=== PATIENT | female | born 1950 | race Caucasian/White ===

== ENCOUNTER 2017-03-12 15:35 | Inpatient (IN) | payer MEDICARE, OTHER ==
[~2017-03-12] VITALS: Ht 157.5 cm; Wt 59.6 kg
[2017-03-12 18:10] VITALS: BP 147/73
[2017-03-12 19:03] LABS: MEAN CORPUSCULAR HEMOGLOBIN 37.7 pg (27.0-33.0); RED CELL DISTRIBUTION WIDTH 13.8 % (11.5-14.5); WHITE BLOOD COUNT 11.4 K/mm3 (4.0-10.0)
[2017-03-12 19:21] LABS: ALBUMIN 3.1 GM/DL (3.2-5.2); ALBUMIN/GLOBULIN RATIO 1.15 (1.00-1.93); ALKALINE PHOSPHATASE 77 U/L (45-117); ALT/SGPT 29 U/L (12-78); ANION GAP 7 MEQ/L (8-16); AST/SGOT 42 U/L (15-37); BLOOD UREA NITROGEN 7 MG/DL (7-18); CALCIUM LEVEL 8.2 MG/DL (8.8-10.2); CARBON DIOXIDE LEVEL 31 MEQ/L (21-32); CHLORIDE LEVEL 88 MEQ/L (98-107); CREATININE FOR GFR 0.36 MG/DL (0.55-1.02); GLOMERULAR FILTRATION RATE > 60.0 (>45); GLUCOSE, FASTING 121 MG/DL (80-110); MAGNESIUM LEVEL 2.4 MG/DL (1.8-2.4); PHOSPHORUS LEVEL 3.1 MG/DL (2.5-4.9); POTASSIUM SERUM 3.7 MEQ/L (3.5-5.1); SODIUM LEVEL 126 MEQ/L (136-145); TOTAL PROTEIN 5.8 GM/DL (6.4-8.2)
[2017-03-12] MEDS ORDERED: ASPI1TAB PO (19:24)
[2017-03-12] MEDS ORDERED: OLME1TAB9 PO (19:24)
[2017-03-12] MEDS ORDERED: TYLE325T5 PO (19:24)
[2017-03-12] MEDS ORDERED: CARV12.5 PO (19:24)
[2017-03-12] MEDS ORDERED: AMLO5TAB2 PO (19:24)
[2017-03-12] MEDS ORDERED: ALBU83IN INH (19:24)
[2017-03-12] MEDS ORDERED: IPRASOL4 INH (19:24)
[2017-03-12] MEDS ORDERED: VITA100066 PO (19:30)
[2017-03-12] MEDS ORDERED: HYDR10VL IV (19:30)
[2017-03-12] MEDS ORDERED: FAMO1TAB11 PO (19:30)
[2017-03-12] MEDS ORDERED: LOVE1INJ SC (19:30)
[2017-03-12] MEDS ORDERED: LORA-376 PO (19:30)
[2017-03-12] MEDS ORDERED: FOLI400T PO (19:30)
[2017-03-12] MEDS ORDERED: LOSA50TA20 PO (19:31)
[2017-03-12] MEDS ORDERED: VITMTA PO (19:35)
[2017-03-12] MEDS ORDERED: NICO7DIS2 TD (19:35)
[2017-03-12] MEDS ORDERED: POTA10PO PO (19:35)
[2017-03-12] MEDS ORDERED: VANC1VLAD IV (19:39)
[2017-03-12] MEDS ORDERED: VITA100T2 PO (19:39)
[2017-03-12] MEDS ORDERED: FURO10IN17 IV (19:39)
[2017-03-12] MEDS ORDERED: SPIR1CAP INH (19:39)
[2017-03-12] MEDS ORDERED: FURO40TA2 PO (19:39)
[2017-03-12] MEDS ORDERED: SPIR25TA2 PO (19:39)
[2017-03-12] MEDS ORDERED: SIMV10TA2 PO (19:44)
[2017-03-12 20:00] VITALS: BP 153/87
--- NOTE | 2017-03-12 20:18 | HPEPDOC ---
Medical History and Physical Date of Admission March 12, 2017 at 18:00 History and Physical PRIMARY CARE PROVIDER: ATTENDING: Quyen Cardenas MD CHIEF COMPLAINT: Transferred from [facility] for low sodium HISTORY OF PRESENT ILLNESS: This is a 66-year-old female past medical history of of COPD, significant tobacco abuse 1 pack per day 55 years, alcohol abuse, CHF was admitted to [facility] on 02/21 and discharged 02/22 with azithromycin and cefpodoxime for CAP/UTI. Patient had presented back to [facility] on 02/28 complaining of confusion and ataxia during which the patient was noted to have a sodium of 107, potassium 2.8 , chloride 71, lactic acid 0.9. Patient had been complaining of diarrhea and vomiting for 3 days prior to presentation on the . Patient was noted to have C. difficile and was treated with Flagyl completed 1 week treatment. Patient was then treated with Zosyn for pneumonia after which vancomycin was added for persistent leukocytosis while the patient was on steroids. Patient had been afebrile. In regards to the hyponatremia as per Dr. Moore from [facility], the patient had been given 3 presents sodium on presentation with mild improvement. Patient was thought to be volume overloaded and was given diuretics as well as lab Samsca 30mg, which closed the sodium to rise from 124-147 on 03/07. The patient had then been given fluids as well as salt tablets as the sodium started to trend down to 124-> 118. Dr. Moore states that he also gave an additional 15 mg of Samsca prior to sending the patient's to [facility]. Dr. Moore was concerned for the persistent hyponatremia for sedation has been transferred here. Of note there has been a significant rise in the patient's sodium since the patient's admission to [facility] on 02/28 the patient had an initial rise of sodium from 107-122 in less than 24 hours from initial presentation. Patient then had an acute rise of sodium from 124-147 after 30 mg of Samsca was given . The patient certainly has a increased risk of developing central pontine myelolysis, during which initial symptoms do not develop immediately after the rapid rise of sodium. The patient will need to be monitored for this. PAST MEDICAL HISTORY: As per HPI PAST SURGICAL HISTORY: Carpal tunnel surgery bilaterally, rotator cuff surgery bilaterally, tonsillectomy, tubal ligation SOCIAL HISTORY: Smokes 1 pack per day 55 years, drinks daily (7 vodkas). No illicit drug use. FAMILY HISTORY: Noncontributory ALLERGIES: Please see below. REVIEW OF SYSTEMS: HEENT: Denies sore throat/headache CARDIOVASCULAR: Denies chest pain/palpitations RESPIRATORY: No shortness of breath/cough GASTROINTESTINAL: denies nausea/vomiting GENITOURINARY: Denies dysuria/urinary urgency. MUSCULOSKELETAL: Denies myalgias/arthralgias NEUROLOGICAL: Denies any focal weakness Rest of ROS negative. HOME MEDICATIONS: Please see below. PHYSICAL EXAMINATION: Vitals: (see below) General: No acute distress, laying comfortably in bed. HEENT: Moist mucous membranes. Thrush Neck: No JVD or lymphadenopathy Cardiac: Regular rhythm. Tachycardic. No murmurs Pulm: Minimal coarse crackles b/l bases. No wheezing or rhonchi Abd: NT/ND + BS Ext: No edema or cyanosis Moving all ext, following commands. AAOx3. LABORATORY DATA: See below. IMAGING: CT of the chest at [facility] with diffuse mediastinal lymphadenopathy. MICROBIOLOGY: Please see below. ASSESSMENT/PLAN: 1. Hyponatremia - Likely multifactorial. Beer proteinemia, volume depletion on presentation with diarrhea, ? SIADH ?CHF. Mixed picture given multiple therapies at [facility]. Serum Na now 126.Will check Urine Na, Cr, urine osm, serum Osm, UA, TSH, cortisol level. Given patient's rapid rise in sodium at [facility], patient certainly has an increased risk of central pontine myelinolysis, and I have explained this to the patient. Appreciate Dr. Varma' s input. 2. CHF- unknown EF. Compensated at this time. Echocardiogram. Diuretics on hold for tonight, consider restarting tomorrow once urine lytes/osm is back. 3. Hypertension- controlled. Continue current meds. 4. COPD- compensated. Continue nebulizers. Taper steroids 5. Leukocytosis- likely secondary to steroids. Afebrile. Hold antibiotics for now. 6. Recent treatment of community acquired pneumonia/UTI/C. difficile 7. Lymphadenopathy/?left pleural effusion- CT of the chest with contrast ordered. Consider pulmonology consultation after CT. Concerning for malignancy. 8. Tobacco abuse- cessation counseling 9. Alcohol abuse- cessation counseling. Patient states she wants to avoid drinking alcohol again. Physical therapy. DVT prophylaxis- enoxaparin Vital Signs Vital Signs Date Time Temp Pulse Resp B/P (MAP) Pulse Ox O2 Delivery O2 Flow Rate FiO2 03/12/17 18:10 97.4 103 22 147/73 (97) 96 Nasal Cannula 3.0 Laboratory Data Labs 24H Laboratory Tests 2 03/12/17 18:40: Anion Gap 7L, Glomerular Filtration Rate > 60.0, Blood Urea Nitrogen 7, Creatinine 0.36L, Sodium Level 126L, Potassium Level 3.7, Chloride Level 88L, Carbon Dioxide Level 31, Calcium Level 8.2L, Phosphorus Level 3.1, Aspartate Amino Transf (AST/SGOT) 42H, Alanine Aminotransferase (ALT/SGPT) 29, Alkaline Phosphatase 77, Total Bilirubin 1.0, Total Protein 5.8L, Albumin 3.1L, Magnesium Level 2.4, Albumin/Globulin Ratio 1.15 CBC/BMP Laboratory Tests 03/12/17 18:40 Red Blood Count 3.06 L, Mean Corpuscular Volume 102.0 H, Mean Corpuscular Hemoglobin 37.7 H, Mean Corpuscular Hemoglobin Concent 37.0 H, Red Cell Distribution Width 13.8, Calcium Level 8.2 L, Phosphorus Level 3.1, Aspartate Amino Transf (AST/SGOT) 42 H, Alanine Aminotransferase (ALT/SGPT) 29, Alkaline Phosphatase 77, Total Bilirubin 1.0, Total Protein 5.8 L, Albumin 3.1 L Home Medications Scheduled Albuterol/Ipratropium (Ipratropium Pinole/Albut 0.5-2.5 (3) mg/3Ml) 1 Luli Luli, 3 ML NEB Q4H Amlodipine Besylate (Amlodipine Besylate) 5 Mg Tab, 5 MG PO DAILY Aspirin (Aspirin EC) 81 Mg Tabec, 81 MG PO DAILY Budesonide (Budesonide) 3 Mg Cap, 9 MG PO QAM Carvedilol (Carvedilol) 12.5 Mg Tab, 12.5 MG PO BID Famotidine (Pepcid) 20 Mg Tab, 20 MG PO BID Folic Acid (Folic Acid) 1 Mg Tab, 1 MG PO DAILY Multivitamins *[facility] STOCKED* (Thera M Plus *[facility] STOCKED*) 1 Tab Tab, 1 TAB PO DAILY Nicotine (Nicotine Transdermal Syst) 7 Mg/24 Hr Dis, 1 PATCH TD DAILY Potassium Chloride (Klor-Con M10) 10 Meq Tabcr, 40 MEQ PO DAILY Simvastatin (Simvastatin) 10 Mg Tab, 10 MG PO QHS Sodium Chloride (Sodium Chloride) 1 Gm Tab, 1 GM PO TID Sodium Chloride (Sodium Chloride) 1 Gm Tab, 1 GM PO TID Thiamine Hcl (Thiamine Hcl) 100 Mg Tab, 100 MG PO DAILY Tiotropium Pinole Monohydrate (Spiriva Handihaler) 5 Inhalation/Inhaler Powd, 1 INHALATION INH DAILY Vitamin D (Vitamin D3) 1,000 Units Tab, 1,000 UNITS PO DAILY [entocort ec] , 9 MG PO DAILY Scheduled PRN (Tylenol) 325 Mg Cap, 650 MG PO Q6HP PRN for PAIN / FEVER Alprazolam (Xanax) 0.5 Mg Tab, 0.25 MG PO Q4HP PRN for ANXIETY Allergies Coded Allergies: No Known Allergies (Unverified , 03/12/17) QUYEN CARDENAS MD March 12, 2017 20:18
[2017-03-12] MEDS ORDERED: ACETAMINOPHEN TAB 650MG DOSE (2X325MG) PO PRN (20:30)
[2017-03-12] MEDS: FAMOTIDINE 20 MG TAB PO SCH (20:41)
[2017-03-12] MEDS: SIMVASTATIN 10 MG TAB PO SCH (20:41)
[2017-03-12] MEDS: LORazepam 0.5 MG TAB PO SCH (20:41)
[2017-03-12] MEDS: NYSTATIN 500,000 U/5 ML SUSP UDC SS SCH ×2 (20:41→23:59)
[2017-03-12] MEDS: CARVedilol 12.5 MG TAB PO SCH (20:42)
[2017-03-12] MEDS ORDERED: ALBUTEROL SULFATE 2.5 MG/0.5 ML INH NEB SOLN INH PRN (20:45)
[2017-03-12] MEDS: IPRATROPIUM 0.5MG/ALBUTEROL 2.5MG INH SOL UD 3ML (DUONEB)(J7620) NEB SCH (23:47)
[2017-03-12 23:59] VITALS: BP 129/81
[2017-03-13 00:17] LABS: ANION GAP 7 MEQ/L (8-16); BLOOD UREA NITROGEN 9 MG/DL (7-18); CALCIUM LEVEL 7.9 MG/DL (8.8-10.2); CARBON DIOXIDE LEVEL 31 MEQ/L (21-32); CHLORIDE LEVEL 89 MEQ/L (98-107); CREATININE FOR GFR 0.42 MG/DL (0.55-1.02); GLOMERULAR FILTRATION RATE > 60.0 (>45); GLUCOSE, FASTING 123 MG/DL (80-110); POTASSIUM SERUM 3.8 MEQ/L (3.5-5.1); SODIUM LEVEL 127 MEQ/L (136-145)
--- NOTE | 2017-03-13 00:18 | CR ---
DATE OF CONSULTATION: 03/12/2017 REQUESTING PHYSICIAN: Dr. Lukas Cardenas CONSULTING PHYSICIAN: Dr. Varma REASON FOR CONSULTATION: Management of hyponatremia. CHIEF COMPLAINT: Patient was transferred from [facility] for management of hyponatremia. HISTORY OF PRESENT ILLNESS: Liz Jones is a 66-year-old female with past medical history of chronic obstructive pulmonary disease (COPD), alcohol abuse, and congestive heart failure (CHF) who was transferred from [facility] today for further management of hyponatremia. As per transfer documentation, she was admitted at the hospital on February 21 and was discharged on February 22 with a diagnosis of pneumonia, and she was given azithromycin and cefpodoxime. After taking antibiotics, patient started having diarrhea, pain in abdomen, confusion, and ataxia. She presented back to the hospital on February 28, and she was found to have a sodium of 107, potassium of 2.8. She was subsequently diagnosed with Clostridium (C) difficile colitis. She was started on Flagyl. She started responding well to Flagyl. During admission she was given Zosyn for the pneumonia. For the hyponatremia, she was initially thought to be volume overloaded. She was given salt tablets and Lasix. Later on, on recommendations of cardiology, she was given a dose of Samsca 30 mg, which suddenly increased her sodium from 124 to 147 on March 07. After that, she was given intravenous (IV) fluids, and her sodium trended down to 124. Since her frequent fluctuations of sodium during this recent admission, the primary team was not comfortable managing this patient at that hospital, so patient was discussed with the hospitalist team and with the nephrology service at [facility], and patient was transferred to our hospital for further management. When patient arrived today in the hospital, she is awake, alert, oriented times three. She is asymptomatic at this time. Her sodium is 126 today. Before transfer from [facility], she was also given another dose of Samsca 15 mg. Nephrology is seeing the patient for further management of hyponatremia. PAST MEDICAL HISTORY: 1. Patient has a past medical history of pneumonia and upper respiratory infection, which was recently treated. 2. Recent history of C. difficile. 3. Chronic obstructive pulmonary disease (COPD. 4. Heavy alcohol abuse. 5. Congestive heart failure. PAST SURGICAL HISTORY: 1. Patient has bilateral carpal tunnel surgeries. 2. Bilateral rotator cuff surgery. 3. Status post tonsillectomy. 4. Status post tubal ligation. ALLERGIES: No known drug allergies. FAMILY HISTORY: No significant family history of end-stage renal disease requiring hemodialysis. SMOKING HISTORY: Patient is an active smoker. Smokes about one pack per day, but she reports for the last one week she has not smoked. Patient is a heavy drinker as well. She drinks about seven vodkas every day. She denies any illicit drug abuse. REVIEW OF SYSTEMS: CONSTITUTIONAL: Patient denies any fever, chills, rigors, or weakness. EYES: Patient denies any double vision or blurry vision. ENT: She denies any ear discharge, dysphagia, odynophagia. CARDIOVASCULAR: She denies any chest pain, palpitations. RESPIRATORY: Patient is always short of breath because of her COPD. GASTROINTESTINAL: She denies any pain in abdomen, constipation. She reports recent history of C. difficile and diarrhea. GENITOURINARY: She denies any dysuria or hematuria. SKIN: She denies any rashes or ulcer. MUSCULOSKELETAL: She denies any muscle aches and pains. CENTRAL NERVOUS SYSTEM: She denies any recent weakness of any part of the body. Denies any seizure. Denies history of strokes. PSYCHIATRIC: Denies history of depression or anxiety. HEMATOLOGIC/ONCOLOGIC: She denies history of any malignancy. All other review of systems was found to be negative. PHYSICAL EXAMINATION: GENERAL: Patient is awake, alert, oriented times three, sitting in the bed in mild respiratory distress. VITAL SIGNS: Temperature is 97.3 degrees Fahrenheit, blood pressure is 153/87, pulse is 103, respiratory rate of 18, saturating 92% on nasal cannula at 3 liters. Intake and output: Urine output reported so far is 300 mL. HEAD AND NECK: Extraocular muscles intact. Pupils equally round and reactive to light. Mucous membranes are moist. Neck is supple. There is no jugular venous distention (JVD). CARDIOVASCULAR: S1, S2, tachycardia. No murmur, rub, or gallop. RESPIRATORY: Decreased breath sounds at the bases. Mild expiratory rhonchi at the bases, especially on the left side. ABDOMEN: Abdomen is soft. Positive bowel sounds. Nontender. No ascites. No organomegaly. EXTREMITIES: No clubbing or cyanosis. Pulses are 2+. There is trace edema of the bilateral lower extremities. CENTRAL NERVOUS SYSTEM: No focal neurological deficit. Power is 5/5 in all extremities. SKIN: No rashes or ulcers. PSYCHIATRIC: Normal mood and affect. LABORATORY REVIEW: CBC showed a WBC 11.4, hemoglobin is 11.5, platelets of 190. BMP showed sodium 126, potassium 3.7, chloride 88, bicarbonate is 31, BUN is 7, creatinine is 0.36. Osmolality is 258. Calcium is 8.2, phosphorus is 3.1. Albumin is 3.1. TSH is 1.5. IMAGING: A chest x-ray was done today. Official report is pending. As read by me , patient has pulmonary congestion, possible nodules in the left upper lobe, and questionable cavitary lesion. She does have cardiomegaly as well. CURRENT MEDICATIONS: - Patient is on Tylenol as needed - amlodipine 5 mg daily - aspirin 81 mg daily - Coreg 12.5 mg twice a day - Lovenox 40 mg subcutaneous daily - Pepcid 20 mg by mouth twice a day - hydrocortisone 25 mg intravenous (IV) daily - Ativan 0.5 mg by mouth at bedtime - losartan 50 mg by mouth daily - multivitamin - nicotine patch - nystatin 5 mL every 6 hours - simvastatin 10 mg at bedtime - thiamine 100 mg by mouth daily - tiotropium inhalation daily - vitamin D 1000 units by mouth daily ASSESSMENT: A 66-year-old female with recent urinary tract infection, recent Clostridium (C) difficile diarrhea, transferred from [facility] because of recent severe hyponatremia and fluctuating sodium levels. PLAN: 1. Hyponatremia. Patient's lowest sodium recent was 107. On transfer, patient's sodium level was 126. She was given a dose of Samsca today before being transferred to our hospital. I would not give any further medications at this time and continue to basic metabolic panel (BMP) every 6 hours. Continue daily weighs and 24-hour intake and input. serum thyroid-stimulating hormone (TSH) is normal. Cortisol level is pending. Serum osmolality is low. Urinalysis: Urine osmolality and urine sodium levels are pending. I have stopped the losartan. In patient's current medications, I do not see any of the medication that can cause hyponatremia. 2. Recent upper respiratory tract infection and pulmonary nodules on recent imaging. Patient has recently been treated with IV antibiotics. There is a slight leukocytosis. Continue the nebulizations at this time. Outside hospital imaging will be submitted for comparison. Chest x-ray is done. Official report is pending. Rest of the management is as per primary team. Consider getting pulmonary on board as well. 3. Hypertension. Continue current dose of Coreg and amlodipine. I have stopped losartan. Rarely angiotensin-converting enzyme (JENNIFER) inhibitors and angiotensin receptor blockers (ARBs) can cause hyponatremia as well. 4. History of alcohol abuse. I have ordered the liver ultrasound. Continue alcohol withdrawal precautions. Continue thiamine 100 mg by mouth daily. Start folic acid 1 mg by mouth daily as well. 5. History of congestive heart failure. Diuretics are on hold. Continue Coreg. Angiotension-receptor blockers are on hold. No need of diuretics at this time. Thank you for involving us in this patient. We shall be happy to follow the patient along with you tomorrow morning. Plan of care was discussed with the on-call hospitalist, Dr. Lukas Cardenas. ERWIN
[2017-03-13] MEDS: IPRATROPIUM 0.5MG/ALBUTEROL 2.5MG INH SOL UD 3ML (DUONEB)(J7620) NEB SCH ×6 (03:25→23:43)
[2017-03-13 04:00] VITALS: BP 156/71
[2017-03-13] MEDS: NYSTATIN 500,000 U/5 ML SUSP UDC SS SCH ×4 (05:12→23:54)
[2017-03-13 05:56] LABS: MEAN CORPUSCULAR HEMOGLOBIN 36.6 pg (27.0-33.0); MEAN CORPUSCULAR HGB CONC 36.1 g/dl (32.0-36.5); MEAN CORPUSCULAR VOLUME 101.5 fl (80.0-96.0); RED CELL DISTRIBUTION WIDTH 14.1 % (11.5-14.5); WHITE BLOOD COUNT 9.3 K/mm3 (4.0-10.0)
[2017-03-13 06:25] LABS: ALBUMIN 2.5 GM/DL (3.2-5.2); ALBUMIN/GLOBULIN RATIO 0.93 (1.00-1.93); ALKALINE PHOSPHATASE 68 U/L (45-117); ALT/SGPT 25 U/L (12-78); ANION GAP 10 MEQ/L (8-16); AST/SGOT 37 U/L (15-37); BILIRUBIN,TOTAL 0.7 MG/DL (0.2-1.0); BLOOD UREA NITROGEN 9 MG/DL (7-18); CALCIUM LEVEL 7.1 MG/DL (8.8-10.2); CARBON DIOXIDE LEVEL 25 MEQ/L (21-32); CHLORIDE LEVEL 89 MEQ/L (98-107); CREATININE FOR GFR 0.33 MG/DL (0.55-1.02); GLOMERULAR FILTRATION RATE > 60.0 (>45); GLUCOSE, FASTING 107 MG/DL (80-110); MAGNESIUM LEVEL 1.8 MG/DL (1.8-2.4); POTASSIUM SERUM 3.4 MEQ/L (3.5-5.1); SODIUM LEVEL 124 MEQ/L (136-145); TOTAL PROTEIN 5.2 GM/DL (6.4-8.2)
[2017-03-13 07:30] VITALS: BP 124/74
[2017-03-13] MEDS: TIOTROPIUM INHALER/CAPSULE (SPIRIVA) INH SCH (07:47)
[2017-03-13] MEDS ORDERED: LOSARTAN 50 MG TAB PO SCH (09:00)
[2017-03-13] MEDS: THIAMINE 100 MG TAB PO SCH ×3 (09:00→10:56)
[2017-03-13] MEDS ORDERED: HYDROCORTISONE 100 MG/2 ML VIAL (J1720) IV SCH (09:00)
[2017-03-13] MEDS ORDERED: ENOXAPARIN 40 MG/0.4 ML SYRINGE (J1650) SC SCH (09:00)
[2017-03-13] MEDS: MULTIVITAMINS/MINERALS THERAP 1 TAB PO SCH ×3 (09:00→10:55)
--- NOTE | 2017-03-13 09:08 | REP ---
PORTABLE CHEST, ONE VIEW: HISTORY: Congestion. Increased density is present in the left upper and lower lobe consistent with atelectasis or infiltrate. A diffuse increase in interstitial markings is present in the lungs. The heart is obscured by the density in the left lung. IMPRESSION: 1. Left upper and lower lobe atelectasis or infiltrate. 2. There is an increase in interstitial markings in the lungs. It cannot be determined if this is acute or chronic. This may represent chronic interstitial fibrosis or an acute process such as interstitial edema or pneumonia. Signed by Madhav Nguyễn MD 03/13/2017 09:42 A
[2017-03-13] MEDS ORDERED: ISOVUE-370 76% 100ML VIAL (Q9967) As Ordered ONE (09:27)
--- NOTE | 2017-03-13 09:56 | REP ---
RIGHT UPPER QUADRANT ULTRASOUND: Real-time sonographic evaluation of the right upper quadrant performed. The gallbladder demonstrates no evidence of intraluminal sludge or calculi, wall thickening or pericholecystic fluid. There is no intrahepatic or extrahepatic biliary dilatation, the common bile duct measuring 4 mm in diameter. Echotexture of the liver is mildly heterogeneous. There appears to be a cyst in the left lobe 7 x 5 x 6 mm. A right lobe liver cyst demonstrates internal septations and measures 1.5 x 1.1 x 1.3 cm. Two adjacent hyperechoic nodular areas in the right lobe measure 1.3 x 0.6 x 1.0 cm and 1.0 x 0.9 x 0.8 cm. These could represent hemangiomas but other solid nodules are not excluded. Pancreas is not well seen due to overlying bowel gas. The visualized portions are grossly unremarkable. Right kidney demonstrates no hydronephrosis with a length of 10.9 cm. IMPRESSION: Somewhat heterogeneous echotexture of the liver. Two cysts are seen in the liver. Two focal hyperechoic nodular areas could represent hemangiomas or other solid nodules. The study is limited due to tachypnea and inability to suspend respirations. Further evaluation of the liver may be made with CT with contrast. MRI would likely not be useful until the patient is able to control respirations. Signed by Aditya Calvillo MD 03/13/2017 04:45 P
[2017-03-13] MEDS ORDERED: POTASSIUM CHLORIDE 10 MEQ SR TABLET PO ONE ×2 (10:00→19:00)
[2017-03-13] MEDS: ASPIRIN 81 MG ENTERIC TAB PO SCH (10:03)
[2017-03-13] MEDS: CARVedilol 12.5 MG TAB PO SCH ×2 (10:03→20:38)
[2017-03-13] MEDS: FAMOTIDINE 20 MG TAB PO SCH ×2 (10:03→20:38)
[2017-03-13] MEDS: amLODIPine 5 MG TAB PO SCH (10:03)
[2017-03-13] MEDS: VITAMIN D 1,000 INTERNATIONAL UNITS TABLET PO SCH (10:03)
[2017-03-13] MEDS: FUROSEMIDE 20 MG/2 ML VIAL (J1940) IV SCH ×2 (10:39→17:02)
[2017-03-13] MEDS: NICOTINE 7 MG/24 HR TRANSDERMAL TD SCH (10:40)
--- NOTE | 2017-03-13 11:03 | IPNPDOC ---
Subjective Date Seen The patient was seen on 03/13/17. Subjective Chief Complaint/HPI The patient is a 66-year-old female admitted with a reason for visit of Malignant Hyponatremia And Low Sodium. Events since last encounter Patient was seen this morning at bedside. She reports feeling ok. She denies any chest pain/pressure, shortness of breath, nausea, vomiting, abdominal pain, diarrhea, confusion, lightheadedness, dizziness. Mentation is at baseline. Afebrile and vitals are stable. Objective Physical Examination General Exam: Positive: Alert, Cooperative, No Acute Distress Eye Exam: Positive: Conjunctiva & lids normal, EOMI, Negative: Sclera icteric ENT Exam: Positive: Atraumatic, Mucous membr. moist/pink, Pharynx Normal Neck Exam: Positive: Supple, Negative: thyromegaly Chest Exam: Positive: Diminished (slightly dimished on the left) Heart Exam: Positive: Rate Normal, Regular Rhythm, Normal S1, Normal S2, Negative: Murmurs Abdomen Exam: Positive: Normal bowel sounds, Soft, Other (large ecchymoses on left lower flank area), Negative: Tenderness Extremity Exam: Positive: Edema (trace lower extremity edema), Normal pulses, Negative: Cyanosis, Tenderness Skin Exam: Positive: Nl turgor and temperature, Negative: Rash Neuro Exam: Positive: Normal Speech, Cranial Nerves 3-12 NL Psych Exam: Positive: Mental status NL, Mood NL Assessment /Plan Problems (1) Hyponatremia Status: Acute Problem Specific Plan: Consult Specialist Problem Text: * Suspecting SIADH, could also have a component of beer potomania * Patient presented to the [facility] with sodium level of 107 * Given Samsca, sodium level was rapidly corrected while at [facility], monitor for neurological changes * Nephrology following * Placed on a 1200ml fluid restriction * TSH and cortisol within normal. Urine osmol and serum osmol low, uric acid low * Follow BMP q6h (2) Pulmonary nodules/lesions, multiple Problem Text: * Patient had numerous pulm nodules on chest CT, some of which are spiculated with massive adenopathy * Pulmonary consulted for further eval, possible biopsy * Also has a focal lesion on liver, hemangioma vs solid nodule (3) Alcohol abuse Status: Chronic Problem Text: * Likely contributed to low sodium levels * Liver ultrasound on 03/13 revealed 2 cysts in the liver, 2 focal hyperechoic nodular areas which could represent hemangioma or solid nodules * Recommending CT with contrast to further evaluate liver however patient just had CT of the chest with contrast * Continue with thiamine, folic acid and multivitamins daily * Counseled on alcohol abuse. Encouraged cessation. (4) CHF (congestive heart failure) Status: Chronic Problem Text: * Currently on IV Lasix * Echo pending * Had bilateral effusion and slight pericardial effusion seen on CT (5) Chronic respiratory failure with hypoxia Problem Text: * Currently requiring 3L of O2, was not on oxygen at home * Has chronic SOB from COPD * Found to have multiple pulmonary nodules and bilateral effusions (6) Hypokalemia Status: Acute Problem Text: * Oral potassium supplementation given * Continue to monitor electrolytes while being diuresed (7) Hypertension Status: Chronic Problem Text: * Blood pressure stable * Currently on Norvasc and Coreg (8) COPD (chronic obstructive pulmonary disease) Status: Chronic Problem Text: * Patient is currently on 3L O2, titrate to 88-92% * Monitor respiratory status * DuoNeb breathing treatments as needed, continue Spiriva (9) Irritable bowel syndrome Status: Chronic Problem Text: * Takes budesonide for chronic diarrhea Plan/VTE VTE Prophylaxis Ordered?: Yes (lovenox) VS, I&O, 24H, Fishbone Vital Signs/I&O Vital Signs Date Time Temp Pulse Resp B/P (MAP) Pulse Ox O2 Delivery O2 Flow Rate FiO2 03/13/17 10:03 122/70 03/13/17 07:30 98.1 103 22 91 Nasal Cannula 3.0 I&O- Last 24 Hours up to 6 AM 03/13/17 05:59 Intake Total 0 ml Output Total 700 ml Balance -700 ml Laboratory Data CBC/BMP Laboratory Tests 03/12/17 18:40 Red Blood Count 3.06 L, Mean Corpuscular Volume 102.0 H, Mean Corpuscular Hemoglobin 37.7 H, Mean Corpuscular Hemoglobin Concent 37.0 H, Red Cell Distribution Width 13.8, Calcium Level 8.2 L, Phosphorus Level 3.1, Aspartate Amino Transf (AST/SGOT) 42 H, Alanine Aminotransferase (ALT/SGPT) 29, Alkaline Phosphatase 77, Total Bilirubin 1.0, Total Protein 5.8 L, Albumin 3.1 L 03/12/17 23:43 Calcium Level 7.9 L 03/13/17 05:09 Red Blood Count 2.66 L, Mean Corpuscular Volume 101.5 H, Mean Corpuscular Hemoglobin 36.6 H, Mean Corpuscular Hemoglobin Concent 36.1, Red Cell Distribution Width 14.1, Calcium Level 7.1 L, Aspartate Amino Transf (AST/SGOT) 37, Alanine Aminotransferase (ALT/SGPT) 25, Alkaline Phosphatase 68, Total Bilirubin 0.7, Total Protein 5.2 L, Albumin 2.5 L ALDO ALVES DO March 13, 2017 11:03
--- NOTE | 2017-03-13 11:06 | REP ---
REASON: Pleural effusion. COMPARISON: None. CONTRAST UTILIZED: 100 mL Isovue 370. There is massive mediastinal and hilar adenopathy encasing the pulmonary arteries and brachiocephalic veins and a portion of the superior vena cava. There is a pericardial effusion which is slight. There is a small right pleural effusion and a small to moderate left pleural effusion, a portion of which might be loculated inferiorly. The imaged upper abdomen shows a single 1.3 cm size focal area of low density but having some peripheral contrast enhancement. The imaged osseous structures are within normal limits for the patient's age. Evaluation of the lung lorenzo show marked, scattered, asymmetric opacities with conglomerate patchy opacities in the inferior right middle lobe and in the left lower lobe with air bronchograms. Multiple, and in fact, innumerable pulmonary nodules are seen throughout the lung lorenzo, too numerous to count or individually assess and some seemingly spiculated. IMPRESSION: 1. Massive adenopathy as described above. 2. Markedly abnormal lung lorenzo suspicious for metastatic disease, possibly with concomitant right middle and left lower lobe pneumonia, which could potentially be of postobstructive nature or subsegmental atelectatic change from the same. This needs to be correlated clinically. 3. Bilateral pleural effusions. 4. Pericardial effusion. 5. Single focal hepatic abnormality suspicious for hepatic metastasis. It should be stated that at this time, that there is a very, very subtle area of mixed density also seen in the liver in the posterior segment, which I suppose could also potentially represent a small metastatic deposit. 6. Other findings as described above. Signed by Jay Barry DO 03/13/2017 11:10 A
[2017-03-13] MEDS: FOLIC ACID 1 MG TAB PO SCH (11:10)
[2017-03-13] MEDS ORDERED: SLF 3 ML SYR IV PRN (11:15)
[2017-03-13 11:18] LABS: ANION GAP 10 MEQ/L (8-16); BLOOD UREA NITROGEN 8 MG/DL (7-18); CARBON DIOXIDE LEVEL 29 MEQ/L (21-32); CHLORIDE LEVEL 86 MEQ/L (98-107); CREATININE FOR GFR 0.34 MG/DL (0.55-1.02); GLOMERULAR FILTRATION RATE > 60.0 (>45); GLUCOSE, FASTING 112 MG/DL (80-110); POTASSIUM SERUM 3.6 MEQ/L (3.5-5.1); SODIUM LEVEL 125 MEQ/L (136-145)
[2017-03-13 12:00] VITALS: BP 100/60
[2017-03-13 13:28] LABS: URIC ACID 2.3 MG/DL (2.6-6.0)
[2017-03-13] MEDS: SLF 3 ML SYR IV SCH ×2 (14:00→20:39)
[2017-03-13 16:30] VITALS: BP 136/68
[2017-03-13 17:19] LABS: ANION GAP 9 MEQ/L (8-16); BLOOD UREA NITROGEN 11 MG/DL (7-18); CARBON DIOXIDE LEVEL 28 MEQ/L (21-32); CHLORIDE LEVEL 89 MEQ/L (98-107); GLOMERULAR FILTRATION RATE > 60.0 (>45); GLUCOSE, FASTING 118 MG/DL (80-110); POTASSIUM SERUM 3.9 MEQ/L (3.5-5.1); SODIUM LEVEL 126 MEQ/L (136-145)
[2017-03-13] MEDS ORDERED: CALCIUM GLUCONATE 1,000 MG in D5W MINI-BAG PLUS 100 ML IV ONE (19:00)
[2017-03-13 20:01] VITALS: BP 130/70
--- NOTE | 2017-03-13 20:17 | CR ---
DATE OF PULMONARY CONSULTATION: 03/13/2017 REQUESTING PROVIDER: Dr. Camacho, Dr. Lacy. REASON FOR CONSULTATION: Abnormal chest CT. HISTORY OF PRESENT ILLNESS: Liz is a very pleasant 66-year-old smoker who presented to the outside hospital with ataxia and altered mental status; was found to have severe hyponatremia with a sodium of 107. She was rapidly corrected and despite this had no neurologic side effects. She was transferred here because of her hyponatremia. As part of her workup for her hyponatremia she was underwent imaging for which I am consulted. In speaking with the patient, she has been short of breath for approximately a month to 6 weeks. She describes the shortness of breath as worse with exertion. She states she has been so short of breath at times that she has been incontinent of urine. She states this was not because of coughing, simply because she was so dyspneic she was unable to control urination. She denies any chest pain but states she estimates a 10 pound weight loss over the past 2 months. She has had no fevers, but does have soaking night sweats that have been present for approximately 3 months. She has no bony pain. She has a dry nonproductive cough. She denies hemoptysis. She has had no pleurisy. She is orthopneic and states that she could never lay down flat, she would not be able to breathe. She denies any neck swelling, neck discomfort. No change in vision. She has had a headache that is generalized. The headache is mostly located in the frontal regions. She has had no epistaxis. She complains of excessive thirst, but has no history of diabetes or hyperglycemia. She is 55 year pack-year smoker and smoked up until the day she was admitted. She has known chronic obstructive pulmonary disease (COPD), has some shortness of breath at baseline, but states her shortness of breath is significantly worse over the past 4-6 weeks. She does not routinely use steroids at home. She is on Spiriva as an outpatient. She states she is on chronic Entocort for diarrhea and takes 3 tablets a day. She has no family history of lung cancer or lymphoma. She states she receives her primary care at [facility] from Lakeshia Sifuentes. PAST MEDICAL HISTORY: Hypertension. Hypercholesterolemia. COPD, not requiring oxygen at home. Nicotine dependence. Gastroesophageal reflux and chronic diarrhea attributed to "irritable bowel syndrome (IBS)". HOME MEDICATIONS: - acetaminophen 650 mg by mouth every 6 hours as needed - amlodipine 5 mg by mouth daily - aspirin 81 mg by mouth daily - carvedilol 12.5 mg by mouth twice a day - famotidine 20 mg by mouth twice a day - lorazepam 0.5 mg by mouth at bedtime - multivitamin - simvastatin 10 mg by mouth at bedtime - thiamine 100 mg by mouth daily - tiotropium 1 inhalation daily - cholecalciferol 1000 units by mouth daily INPATIENT MEDICATIONS: - Nystatin swish and swallow - Tylenol - Norvasc 5 mg by mouth daily - aspirin 81 mg by mouth daily - Coreg 12.5 mg by mouth twice a day - vitamin D 1000 units by mouth daily - Pepcid 20 mg by mouth twice a day - Ativan 0.5 mg by mouth at bedtime - MVI 1 tablet by mouth daily - nicotine patch, only 7 mg daily - simvastatin 10 mg by mouth at bedtime - thiamine 100 mg by mouth daily - Spiriva 1 inhalation daily - DuoNebs every 4 hours nebulized - Proventil inhaled every 2 hours as needed - Lasix 20 mg IV twice a day - folic acid 1 mg by mouth daily - budesonide 9 mg by mouth every a.m. ALLERGIES: No known drug allergies. SOCIAL HISTORY: The patient is a pack a day smoker for 55 years, has a history of alcohol abuse. Lives in [place] with her . She has a cat, no birds, but did take care of an Jackson for a long period of time. She has a daughter named Roxanne Mccallum who is identified as her healthcare proxy. FAMILY HISTORY: Her father had COPD, mouth cancer and diabetes. There is no family history of lung cancer or lymphoma. REVIEW OF SYSTEMS: General: Positive for night sweats and weight loss. No fever or shaking chills. HEENT: No change in vision. She is having a generalized headache as mentioned above. No epistaxis. No difficulty swallowing. No mouth swelling. She had some thrush. She has dentures. Hem/Onc: No easy bruising, bleeding or history of malignancy. Cardiac: No chest pain, but she does have orthopnea. No paroxysmal nocturnal dyspnea (PND). She has minimal lower extremity edema that she points out to me today. No symptoms of claudication. Pulmonary: She denies pleurisy. No history of TB or tuberculosis contacts. Otherwise as mentioned in HPI. GI: She states she is having symptoms of reflux currently. No nausea, vomiting or diarrhea. No blood in her stool. No constipation. She states she has not had a bowel movement for few days. She has not noticed any blood in her stool. : No burning or pain with urination. However, she is urinary incontinent. No hematuria. Endocrine: No history of diabetes or thyroid disease. She does complain of thirst, but denies polydipsia. No hot or cold intolerance. Neuro: No unilateral weakness, tremor or history of seizure. No significant head trauma. Psych: No anxiety, depression or suicidal ideation. Sleep: No history of obstructive sleep apnea. No excessive daytime somnolence. No history of snoring. Allergy/immunology: No history requiring immunotherapy. No history of immunodeficiencies. Denies environmental allergies. PHYSICAL EXAMINATION: Temperature is 98.0, pulse is 107, respiratory rate is 24, blood pressures 100/60. Mean arterial pressure (MAP) of 73, oxygen saturations 94% on 3 liters. Eyes and nose were not accurately measured yesterday. General: The patient is sitting upright in bed eating dinner. Her speech is clear, not tangential, no evidence of acute respiratory distress. HEENT: Sclerae clear and anicteric. Pupils are 5 mm, equal and reactive to light. Mucous membranes are moist. I do not see any thrush on exam. She does have upper and lower dentures in place. Mallampati 1, neck is supple. No tracheal deviation or mass. She has bilateral increased supraclavicular fat pads suggesting chronic steroid use. Lymph: No palpable cervical supraclavicular axillary adenopathy. Cardiac: Distant S1-S2 without audible murmur, rub or gallop. No elevated jugular venous pressure. Minimal ankle edema. Peripheral pulses are palpable at posterior tibialis bilaterally and symmetric. Pulmonary: Decreased breath sounds throughout, especially at the left base. There is dullness to percussion at the left base. There is decreased tactile fremitus at the left base. Abdomen: Potty with hypoactive bowel sounds. Minimal tenderness to palpation, without rebound or guarding. I do not palpate any mass or hepatosplenomegaly. Extremities: No cyanosis or clubbing. There is minimal bruising over her shins, left greater than right. No jaundice. Neuro: No unilateral weakness. No evidence of tremor or seizure activity. Musculoskeletal: Some muscle wasting. No evidence of joint effusion or fracture. LABS: Laboratory evaluation shows a white blood cell count of 9.3, hemoglobin 9.7, hematocrit of 27.0, platelet of 163, sodium 125, potassium 3.6, chloride of 86, bicarbonate of 29. BUN of 8, creatinine 0.34, albumin 2.5. Chest x-ray from 03/12/2017 shows a left pleural effusion with a significantly enlarged mediastinum. Some increased vascular markings and flattening of the diaphragms. Chest CT from 03/13/2017 shows that the cause of the enlarged mediastinum is significant mediastinal adenopathy. There are numerous lymph nodes throughout the mediastinum with an extremely large subcarinal node and pretracheal node, especially on the right. There are multiple pulmonary nodules, however, these are less than 1 cm. There is bilateral pleural effusions, left greater than right. There is emphysema throughout both lung lorenzo. I do not see any significant areas of pneumonia, although there is what appears to be compressive atelectasis at the left base. I cannot entirely rule out pneumonia at the left base. There is a liver lesion. Ultrasound of the liver was difficult as the patient was to tachpneic. Two cysts were seen in the liver, felt that these were two focal hyperechoic nodular areas that could represent hemangiomas or solid nodules. Recommended further evaluation with other imaging. IMPRESSION: 1. Abnormal chest CT with significant mediastinal hilar adenopathy with pulmonary nodules, bilateral pleural effusions worrisome for malignancy. I suspect this is most likely small cell cancer or lymphoma. I have recommended bronchoscopy with endobronchial ultrasound needle aspiration of the lymphadenopathy for diagnostic purposes. The patient expresses understanding. The risks and benefits were discussed with the patient at bedside. She has agreed to proceed. Alternatives to this procedure including doing nothing and mediastinoscopy was discussed. She states she would not want to pursue a mediastinoscopy. The risks of the procedure including bleeding, pneumothorax, cough, respiratory failure with general anesthesia was discussed with the patient in detail. The patient is not on any anticoagulation other than deep venous thrombosis (DVT) prophylaxis. This will be held. She will be made nothing by mouth (npo) after midnight. 2. Hyponatremia, likely related to pulmonary process. Suspect inappropriate secretion of antidiuretic hormone (SIADH). Would continue fluid restriction. The patient has no signs, symptoms of hyponatremia at this point in time. Would avoid rapid correction. 3. Bilateral pleural effusions may be related to volume overload versus malignancy. If these enlarge will perform thoracentesis. 4. Hepatic lesion. This will need to be followed to see if this is a metastatic lesion. 5. Nicotine dependence. Extensive counseling of need to quit smoking. 6. Gastroesophageal reflux disease, on reflux medications. Will continue to follow this. The patient planned for bronchoscopy tomorrow. MTDD
[2017-03-13] MEDS: SIMVASTATIN 10 MG TAB PO SCH (20:38)
[2017-03-13] MEDS: LORazepam 0.5 MG TAB PO SCH (20:39)
--- NOTE | 2017-03-13 21:50 | ECHO ---
DATE OF PROCEDURE: 03/13/2017 REFERRING PHYSICIAN: Lukas Cardenas MD INDICATION: Cardiomegaly. HEIGHT: 158 cm WEIGHT: 59 kg 2D MEASUREMENTS: Left atrium: 3.1 cm Posterior wall: 1.00 cm Left ventricle diastole: 3.3 cm LVOT: 1.9 cm Aortic root: 2.6 cm DOPPLER MEASUREMENTS: Aortic valve velocity: 123 cm/s LVOT velocity: 91.7 cm/s Mitral deceleration time: 55.3 cm/s Mitral A velocity: 84.9 cm/s Very mild tricuspid regurgitation. Pulmonary artery systolic pressure 46 mmHg by pulmonary artery acceleration time method. MITRAL ANNULAR TISSUE DOPPLER: E prime septal: 6.4 cm/s E prime lateral: 5.2 cm/s DESCRIPTION: Rhythm was sinus tachycardia. This was a moderately technically difficult echocardiogram. This is a 2D, M-mode, color flow Doppler and pulse wave Doppler examination that included mitral annular tissue Doppler. CONCLUSIONS: 1. No enlargement of any of the cardiac chambers. 2. Normal left ventricle, wall motion and left ventricle (LV) systolic functoin. Left ventricular ejection fraction (LVEF) of 70% by visual estimate. Grade 1 left ventricle (LV) diastolic dysfunction (impaired relaxation filling pattern). 3. Small pericardial effusion without diastolic chamber collapse and without significant respiratory variation of intracardiac velocities. 4. Left pleural effusion. 5. Suggestive of moderate elevation of pulmonary artery systolic pressure (46 mmHg).
[2017-03-13 23:39] LABS: ANION GAP 10 MEQ/L (8-16); BLOOD UREA NITROGEN 12 MG/DL (7-18); CALCIUM LEVEL 8.1 MG/DL (8.8-10.2); CARBON DIOXIDE LEVEL 28 MEQ/L (21-32); CHLORIDE LEVEL 94 MEQ/L (98-107); CREATININE FOR GFR 0.47 MG/DL (0.55-1.02); GLOMERULAR FILTRATION RATE > 60.0 (>45); GLUCOSE, FASTING 94 MG/DL (80-110); POTASSIUM SERUM 3.7 MEQ/L (3.5-5.1); SODIUM LEVEL 132 MEQ/L (136-145)
[2017-03-13 23:59] VITALS: BP 99/56
[2017-03-14] VITALS (9 sets, daily range): BP systolic 87–133; BP diastolic 57–70
--- NOTE | 2017-03-14 02:13 | IPN ---
DATE: 03/13/2017 SUBJECTIVE: Patient was seen and examined at the bedside today in the morning. Patient is asymptomatic at this time. Last 24-hour labs and events were noted. Patient's sodium on arrival yesterday was 126, which has dropped to 124 today morning. Patient was given a dose of Lasix this morning to dilute her urine, because her urine osmolality is 296 despite hyponatremia. Patient also got her CAT scan of the chest done yesterday, which showed passive adenopathy and possibility of malignancy in the lungs. Pulmonary evaluation is pending. REVIEW OF SYSTEMS: Patient denies any fever, chills, rigors, headache, nausea, vomiting, chest pain. She does report shortness of breath. She denies any pain in abdomen, constipation, or diarrhea. Rest of review of systems is negative. OBJECTIVE: Vital signs: Temperature is 98.1 degrees Fahrenheit, blood pressure is 124/74, pulse is 103, respiratory rate of 18, saturating 91% on nasal cannula at 3 liters per minute. Intake and output: Urine output recorded is 300 mL yesterday and 1 liter so far today. Weight in the bed scale is 60.5 kg. PHYSICAL EXAMINATION: GENERAL: Patient is awake, alert, oriented times three, sitting in the bed in no apparent distress. HEAD AND NECK: Extraocular muscles intact. Pupils equally round and reactive to light. Mucous membranes are moist. Neck is supple. There is no jugular venous distention (JVD). CARDIOVASCULAR: S1, S2, tachycardia. No murmur, rub, or gallop. RESPIRATORY: Decreased breath sounds at the bases. Mild expiratory rhonchi at the bases and some crepitations on the left side. ABDOMEN: Abdomen is soft. Positive bowel sounds. Nontender. No ascites. No organomegaly. EXTREMITIES: No clubbing or cyanosis. Pulses are 2+. She has very trace edema of the bilateral ankles. CENTRAL NERVOUS SYSTEM: No focal neurological deficit. Power is 5/5 in all extremities. LABORATORY REVIEW: CBC showed a WBC 9.3, hemoglobin is 9.7, platelets are 163. BMP this morning showed a sodium of 124, potassium 3.4, chloride 89, bicarbonate 25, BUN is 9, creatinine is 0.3, calcium is 7.1. LDH is 445. Albumin is 2.5. Morning cortisol is 18.4. TSH is 1.5. Urine random osmolality was 296. Random sodium was 35. HIV antibody is negative. IMAGING: A CAT scan of the chest was done, which showed massive adenopathy. Markedly abnormal lung lorenzo, suspicious for metastatic disease. Possibly with concomitant right middle and left lower lobe pneumonia. Bilateral pleural effusions, pericardial effusion, and single focal hepatic abnormality suspicious for hepatic metastasis. Patient got a liver ultrasound done as well, which showed heterogeneous echotexture of the liver and two focal hyperechoic nodular areas suspicious for hemangioma or solid nodules. CURRENT MEDICATIONS: Patient's current medications were all reviewed by me. She was given a dose of calcium gluconate 1 gram IV for hypocalcemia. She has been started on amlodipine 5 mg by mouth daily. Coreg 12.5 mg by mouth twice a day has been restarted. She has been started on Lasix 20 mg IV twice a day. She was given a dose of potassium chloride 40 mEq by mouth times one dose this morning. There is no other change in the medications today. ASSESSMENT: A 66-year-old female with multiple nodular lesions in the lung, hyponatremia, hypokalemia, and hypertension. PLAN: 1. Euvolemic, hypotonic hyponatremia with high urine osmolality and high urine sodium, which points toward syndrome of inappropriate secretion of antidiuretic hormone (SIADH). The etiology of SIADH is most likely lung pathology. Patient has been started on Lasix 20 mg IV twice a day. I am also going to start the patient on a salt tablet. If Lasix and salt tablet are not able to control patient's sodium levels, then patient will be started on daily Samsca. 2. Multiple pulmonary nodules and suspicious lesions on the CAT scan. Patient is getting nebulizations. Currently she is not getting any antibiotics. Pulmonary consult is pending. Patient will need a lung biopsy to rule out malignancy. 3. Hypertension. Continue Coreg and amlodipine. Hold angiotensin-converting enzyme (JENNIFER) inhibitors, which can sometimes cause hyponatremia. 4. History of congestive heart failure and pericardial effusion. Low-dose diuretics have been started, which will help with hyponatremia and also with congestive heart failure (CHF). Continue Coreg. Hold JENNIFER inhibitors. 5. Hypokalemia. Patient was given potassium chloride 40 mEq by mouth times one dose. 6. Hypocalcemia. Patient was given calcium gluconate 1 gram IV times one dose. The plan of care was discussed with the hospitalist team, Dr. Susi Camacho. Continue to monitor basic metabolic panel (BMP) every 6 hours for now.
[2017-03-14] MEDS ORDERED: diphenhydrAMINE INJ 50MG/ML VIAL (J1200) IV ONE (02:30)
[2017-03-14 03:18] LABS: MEAN CORPUSCULAR HEMOGLOBIN 36.7 pg (27.0-33.0); MEAN CORPUSCULAR HGB CONC 35.6 g/dl (32.0-36.5); MEAN CORPUSCULAR VOLUME 103.2 fl (80.0-96.0); RED CELL DISTRIBUTION WIDTH 13.8 % (11.5-14.5); WHITE BLOOD COUNT 8.5 K/mm3 (4.0-10.0)
[2017-03-14 03:38] LABS: ALBUMIN 2.6 GM/DL (3.2-5.2); ALBUMIN/GLOBULIN RATIO 0.96 (1.00-1.93); ALKALINE PHOSPHATASE 65 U/L (45-117); ALT/SGPT 24 U/L (12-78); ANION GAP 9 MEQ/L (8-16); AST/SGOT 35 U/L (15-37); BILIRUBIN,TOTAL 0.7 MG/DL (0.2-1.0); BLOOD UREA NITROGEN 12 MG/DL (7-18); CALCIUM LEVEL 7.6 MG/DL (8.8-10.2); CARBON DIOXIDE LEVEL 29 MEQ/L (21-32); CHLORIDE LEVEL 92 MEQ/L (98-107); CREATININE FOR GFR 0.45 MG/DL (0.55-1.02); GLOMERULAR FILTRATION RATE > 60.0 (>45); GLUCOSE, FASTING 103 MG/DL (80-110); MAGNESIUM LEVEL 1.7 MG/DL (1.8-2.4); POTASSIUM SERUM 3.8 MEQ/L (3.5-5.1); SODIUM LEVEL 130 MEQ/L (136-145); TOTAL PROTEIN 5.3 GM/DL (6.4-8.2)
[2017-03-14] MEDS: IPRATROPIUM 0.5MG/ALBUTEROL 2.5MG INH SOL UD 3ML (DUONEB)(J7620) NEB SCH ×5 (04:47→20:38)
[2017-03-14] MEDS: NYSTATIN 500,000 U/5 ML SUSP UDC SS SCH (05:52)
[2017-03-14] MEDS: SLF 3 ML SYR IV SCH ×3 (05:53→20:29)
[2017-03-14] MEDS: TIOTROPIUM INHALER/CAPSULE (SPIRIVA) INH SCH (07:40)
[2017-03-14] MEDS ORDERED: ROCURONIUM BROMIDE 50 MG/5 ML VIAL As Ordered ONE (08:03)
[2017-03-14] MEDS ORDERED: MIDAZOLAM INJ 2 MG/2 ML VIAL (J2250) As Ordered ONE ×2 (08:03→11:10)
[2017-03-14] MEDS ORDERED: PROPOFOL 200 MG/20 ML VIAL As Ordered ONE (08:03)
[2017-03-14] MEDS ORDERED: LIDOCAINE 2% INJ 100 MG/5 ML SDV (FOR ANES.) As Ordered ONE (08:03)
[2017-03-14] MEDS ORDERED: fentaNYL 100 MCG/2 ML INJECTION (J3010) As Ordered ONE (08:04)
[2017-03-14] MEDS: BUDESONIDE EC 3 MG CAP (ENTOCORT EC) PO SCH (09:00)
[2017-03-14] MEDS: THIAMINE 100 MG TAB PO SCH (09:00)
[2017-03-14] MEDS: MULTIVITAMINS/MINERALS THERAP 1 TAB PO SCH (09:00)
[2017-03-14] MEDS: amLODIPine 5 MG TAB PO SCH (09:00)
[2017-03-14] MEDS: CARVedilol 12.5 MG TAB PO SCH ×2 (09:00→20:29)
[2017-03-14] MEDS: FUROSEMIDE 20 MG/2 ML VIAL (J1940) IV SCH ×2 (09:00→17:00)
[2017-03-14] MEDS ORDERED: ENOXAPARIN 30 MG/0.3 ML SYR (J1650) SC SCH (09:00)
[2017-03-14] MEDS ORDERED: EPINEPHrine 1MG/10ML SYRINGE 1.5IN As Ordered ONE (09:13)
[2017-03-14] MEDS ORDERED: LIDOCAINE 1% SDV INJ 30 ML VIAL As Ordered ONE (09:35)
[2017-03-14] MEDS ORDERED: THROMBIN SOLN 5,000 UNITS VIAL As Ordered ONE (09:35)
[2017-03-14] MEDS ORDERED: GLYCOPYRROLATE INJ 0.2 MG/ML 2 ML VIAL As Ordered ONE (09:40)
[2017-03-14] MEDS ORDERED: NEOSTIGMINE 1MG/ML 5 ML SYRINGE (J2710) As Ordered ONE (09:40)
[2017-03-14] MEDS ORDERED: PHENYLephrine HCL 500 MCG/5 ML (100MCG/ML) SYRINGE (J2370) As Ordered ONE (09:41)
[2017-03-14] MEDS ORDERED: ONDANSETRON 4MG/2ML VIAL (J2405) As Ordered ONE (09:41)
[2017-03-14] MEDS ORDERED: PHENYLEPHRINE INJ 10MG/ML VIAL (J2370) As Ordered ONE (09:41)
--- NOTE | 2017-03-14 10:18 | IPNPDOC ---
Subjective Date Seen The patient was seen on 03/14/17. Subjective Chief Complaint/HPI The patient is a 66-year-old female admitted with a reason for visit of Malignant Hyponatremia And Low Sodium. Events since last encounter Patient was seen this morning at bedside. No acute overnight events. She denies any chest pain, increased shortness of breath, nausea, vomiting, diarrhea, fevers or chills. No headache, lightheadedness or dizziness. She is a little nervous about the bronchoscopy this morning but states "I do not like the unknown." Objective Physical Examination General Exam: Positive: Alert, Cooperative, No Acute Distress Eye Exam: Positive: Conjunctiva & lids normal, EOMI, Negative: Sclera icteric ENT Exam: Positive: Atraumatic, Mucous membr. moist/pink, Pharynx Normal Neck Exam: Positive: Supple, Negative: thyromegaly Chest Exam: Positive: Diminished (diminished more on the left and the bases) Heart Exam: Positive: Rate Normal, Regular Rhythm, Normal S1, Normal S2, Negative: Murmurs Abdomen Exam: Positive: Normal bowel sounds, Soft, Other (large ecchymoses on left lower flank area), Negative: Tenderness Extremity Exam: Positive: Edema (trace lower extremity edema), Normal pulses, Negative: Cyanosis, Tenderness Skin Exam: Positive: Nl turgor and temperature, Negative: Rash Neuro Exam: Positive: Normal Speech, Cranial Nerves 3-12 NL Psych Exam: Positive: Mental status NL, Mood NL Assessment /Plan Problems (1) Hyponatremia Status: Acute Problem Specific Plan: Consult Specialist Problem Text: * Suspecting SIADH * Patient presented to the [facility] with sodium level of 107 * Given Samsca, sodium level was rapidly corrected while at [facility], monitor for neurological changes * Nephrology following * Placed on a 1200ml fluid restriction * Currently on IV Lasix BID * TSH and cortisol within normal. Urine osmol and serum osmol low, uric acid low * Continue to monitor sodium levels, currently 130 (2) Pulmonary nodules/lesions, multiple Problem Text: * Patient had numerous pulm nodules on chest CT, some of which are spiculated with massive adenopathy * Pulmonary consulted for further eval * She is being taken for bronchoscopy with ultrasound-guided biopsy this morning * Also has a focal lesion on liver, hemangioma vs solid nodule (3) Alcohol abuse Status: Chronic Problem Text: * Likely contributed to low sodium levels * Liver ultrasound on 03/13 revealed 2 cysts in the liver, 2 focal hyperechoic nodular areas which could represent hemangioma or solid nodules * Continue with thiamine, folic acid and multivitamins daily * Counseled on alcohol abuse. Encouraged cessation. (4) CHF (congestive heart failure) Status: Chronic Problem Text: * Currently on IV Lasix * Echo on 03/13 revealed grade 1 diastolic dysfunction, LVEF of 70%, small pericardial effusion, moderate elevation of pulmonary artery systolic pressure * Had bilateral effusion, left greater than right and slight pericardial effusion seen on CT on 03/13 (5) Chronic respiratory failure with hypoxia Problem Text: * Currently requiring 3L of O2, was not on oxygen at home * Has chronic SOB from COPD * Found to have multiple pulmonary nodules and bilateral effusions (6) Hypokalemia Status: Acute Problem Text: * Oral potassium supplementation given * Continue to monitor electrolytes while being diuresed (7) Hypertension Status: Chronic Problem Text: * Blood pressure stable * Currently on Norvasc and Coreg (8) COPD (chronic obstructive pulmonary disease) Status: Chronic Problem Text: * Patient is currently on 3L O2, titrate to 88-92% * Monitor respiratory status * DuoNeb breathing treatments as needed, continue Spiriva (9) Irritable bowel syndrome Status: Chronic Problem Text: * Takes budesonide for chronic diarrhea (10) Cigarette smoker Problem Text: * Reports that she has smoked 2 packs a day for at least 50 years. * Continue with nicotine patch * Counseled on smoking cessation Plan/VTE VTE Prophylaxis Ordered?: Yes (teds and sequentials) VS, I&O, 24H, Fishbone Vital Signs/I&O Vital Signs Date Time Temp Pulse Resp B/P (MAP) Pulse Ox O2 Delivery O2 Flow Rate FiO2 03/14/17 08:23 Nasal Cannula 3.0 03/14/17 08:00 98.0 97 18 125/60 (81) 95 I&O- Last 24 Hours up to 6 AM 03/14/17 06:00 Intake Total 740 ml Output Total 750 ml Balance -10 ml Laboratory Data CBC/BMP Laboratory Tests 03/13/17 10:39 Calcium Level 8.0 L 03/13/17 16:45 Calcium Level 8.0 L 03/13/17 23:04 Calcium Level 8.1 L 03/14/17 03:07 Calcium Level 7.6 L, Red Blood Count 2.66 L, Mean Corpuscular Volume 103.2 H, Mean Corpuscular Hemoglobin 36.7 H, Mean Corpuscular Hemoglobin Concent 35.6, Red Cell Distribution Width 13.8, Aspartate Amino Transf (AST/SGOT) 35, Alanine Aminotransferase (ALT/SGPT) 24, Alkaline Phosphatase 65, Total Bilirubin 0.7, Total Protein 5.3 L, Albumin 2.6 L ALDO ALVES DO March 14, 2017 10:18
[2017-03-14] MEDS ORDERED: SUGAMMADEX SODIUM 500 MG/5 ML VIAL (BRIDION) As Ordered ONE (10:44)
[2017-03-14] MEDS ORDERED: LEVALBUTEROL 1.25 MG/0.5 ML CONCENTRATE NEB As Ordered ONE (11:07)
[2017-03-14 11:26] LABS: ABG BASE EXCESS 1.8 (-2.0-2.0); ABG HCO3 28.5 MEQ/L (22.0-26.0); ABG PARTIAL PRESSURE CO2 55.4 mmHg (35.0-45.0); ABG PARTIAL PRESSURE O2 54.5 mmHg (75.0-100.0); ABG STANDARD HCO3 25.9 MEQ/L (22.0-26.0); ABG TOTAL CO2 30.2 MEQ/L (23.0-31.0); ABG pH (ARTERIAL) 7.329 UNITS (7.350-7.450)
--- NOTE | 2017-03-14 11:40 | REP ---
CHEST, ONE VIEW: HISTORY: Postoperative. COMPARISON: 03/12/2017. Parenchymal densities are present in the right middle and lower lobes and left upper and lower lobes consistent with bilateral infiltrates that are increased compared to the previous study. A mild size left pleural effusion is present. The heart is obscured by the density in the lungs. The quoc are prominent. IMPRESSION: 1. Right middle and lower lobe and left upper and left lower lobe infiltrates increased compared to the previous study. 2. Mild sized left pleural effusion increased compared to the previous study. Signed by Madhav Nguyễn MD 03/14/2017 11:42 A
[2017-03-14] MEDS ORDERED: LEVALBUTEROL 1.25 MG/0.5 ML CONCENTRATE NEB INH ONE (12:00)
[2017-03-14] MEDS ORDERED: ONDANSETRON 4MG/2ML VIAL (J2405) IV PRN (12:00)
[2017-03-14] MEDS ORDERED: fentaNYL 100 MCG/2 ML INJECTION (J3010) IV PRN (12:00)
[2017-03-14] MEDS ORDERED: LR 1,000 ML IV SCH (12:00)
[2017-03-14] MEDS ORDERED: MIDAZOLAM INJ 2 MG/2 ML VIAL (J2250) IV ONE (12:00)
[2017-03-14] MEDS ORDERED: IPRATROPIUM 0.5MG/ALBUTEROL 2.5MG INH SOL UD 3ML (DUONEB)(J7620) NEB PRN (14:15)
[2017-03-14] MEDS: FAMOTIDINE 20 MG TAB PO SCH ×2 (14:47→20:29)
[2017-03-14] MEDS: ASPIRIN 81 MG ENTERIC TAB PO SCH (14:47)
[2017-03-14] MEDS: VITAMIN D 1,000 INTERNATIONAL UNITS TABLET PO SCH (14:47)
[2017-03-14] MEDS: FOLIC ACID 1 MG TAB PO SCH (14:47)
[2017-03-14] MEDS: NICOTINE 7 MG/24 HR TRANSDERMAL TD SCH (14:48)
--- NOTE | 2017-03-14 15:16 | RO ---
DATE OF PROCEDURE: 03/14/2017 PREPROCEDURE DIAGNOSIS: Mediastinal adenopathy, abnormal chest CT. POSTPROCEDURE DIAGNOSIS: Mediastinal adenopathy, abnormal chest CT. FINDINGS: Left lower lobe hemorrhage prior to biopsy. PROCEDURE: Bronchoscopy with endobronchial ultrasound. PROCEDURALIST: Dr. Genao BATCH TRUCKER: None ANESTHESIA: General. SPECIMENS: FNA subcarinal node. ESTIMATED BLOOD LOSS: 5 to 10 mL. DESCRIPTION OF PROCEDURE: Informed consent was reviewed with the patient in the preoperative area. She was brought back to operating room #8. Time-out was performed with two patient identifiers, confirming correct site and correct procedure. General anesthesia was then initiated. An 8.5 endotracheal tube was placed. The tube was deep. After intubation prior to bronchoscopy, I was called emergently for respiratory arrest. I had to leave the patient. I returned in 18 minutes. There were no complications during that extended time of anesthesia. The bronchoscope was then inserted after a second time-out was performed identifying two patient identifiers for correct site and correct procedure, making sure everyone was present in the room. The scope was inserted into the endotracheal tube with Cetacaine spray. There was a finding of a right mainstem intubation. I therefore pulled the tube back. It was then noticed that there was hemorrhage coming from the left lower lobe and lingular segment, more oozing than jasbir bleeding. I suctioned these areas. There was no significant amounts of hemorrhage. This was all prior to biopsy. On inspection of the airway, the trachea was midline. The gail was a very full and splayed. Right and left mainstem bronchus had mucus. The left mainstem bronchus had some heme, as mentioned was suctioned. RB 1 through 10 was normal without endobronchial lesion with some anatomic variant. There was no apical segment of the right upper lobe. Airways did appear somewhat externally compressed but all were patent without endobronchial lesions. The left mainstem bronchus had some heme and this was all suctioned. Left upper lobe was normal without endobronchial lesion. Lingula was normal except for some heme coming from the inferior segment. In the left lower lobe there was pools of blood, which was suctioned. I suspect the bleeding was actually from the inferior segment. After all hemostasis was assured, the bronchoscope was removed and the endobronchial ultrasound was inserted. The subcarinal node was larger than 4 cm. A picture was taken of this. Biopsies were taken and sent for cell block and some cells but in our PMI. After adequate sampling, hemostasis was assured, and the patient was extubated. The patient was sent to recovery. Postprocedure chest x-ray pending. No observed complications. MTDD
[2017-03-14] MEDS ORDERED: MAG SULF 1GM/100ML (MAG RUN) 1 GM in APPROPRIATE DILUENT 1 EA IV ONE (18:00)
--- NOTE | 2017-03-14 18:06 | ECGEPIP ---
Stationary ECG Study [facility] Test Date: 2017-03-12 Pat Name: SHANTAL DIANE Department: Room: [place] [address] Gender: F Aircraft Maintenance Engineer: STACEY : [id number] Requested By: QUYEN ESCOBEDO Order Number: [id number] Reading MD: Renny England Measurements Intervals [place] Rate: 100 P: 52 [place]: 151 QRS: 31 QRSD: 140 T: 191 QT: 381 QTc: 491 Interpretive Statements SINUS TACHYCARDIA WITH OCCASIONAL VENTRICULAR PREMATURE COMPLEXES VS ARTIFACT LEFT ATRIAL ENLARGEMENT LEFT BUNDLE BRANCH BLOCK NO PRIOR TRACING IN THE SYSTEM Electronically Signed On 03-14-2017 18:06:29 EDT by Renny England
[2017-03-14] MEDS ORDERED: methylPREDNISolone INJ 125 MG/2 ML VIAL (J2930) IV ONE (19:30)
[2017-03-14] MEDS: SIMVASTATIN 10 MG TAB PO SCH (20:29)
--- NOTE | 2017-03-14 22:46 | IPN ---
DATE: 03/14/2017 SUBJECTIVE: The patient was seen and examined today, morning. She was getting ready for her bronchoscopy. Last 24 hour events were noted. Her sodium level is fluctuating between 130-132. Her renal function is stable at this time. REVIEW OF SYSTEMS: The patient denies any fever, chills, rigors, headache, nausea, vomiting, chest pain. She does report some shortness of breath. She denies any pain in abdomen, constipation or diarrhea. The rest of the review of systems is negative. OBJECTIVE: VITAL SIGNS: Temperature is 98 degrees Fahrenheit, blood pressure is 125/60, pulse is 97, respiratory rate of 18, saturating 95% on nasal cannula at 3 liters. INTAKE/OUTPUT: Urine output recorded as 1150 mL yesterday. There is no urine output recorded today. Weight on the bed scale is 58.9 kg. PHYSICAL EXAMINATION: GENERAL: The patient is awake, alert, oriented times three, sitting in the bed in no apparent distress. HEAD AND NECK EXAM: Extraocular muscles intact. Pupils equally round and reactive to light. Mucous membranes are moist. Neck is supple. There is no jugular venous distention (JVD). CARDIOVASCULAR: S1, S2, tachycardia. No murmur, rub or gallop. RESPIRATORY: Decreased breath sounds at the bases. Mild respiratory rhonchi at the bases with some crepitations on the left side. ABDOMEN: Abdomen is soft. Positive bowel sounds. Nontender. No ascites. No organomegaly. EXTREMITIES: No clubbing or cyanosis. Pulses are 2+. Patient has trace edema of the bilateral ankles. CENTRAL NERVOUS SYSTEM: No focal neurological deficit. Power is 5/5 in all extremities. LAB REVIEW: CBC showed a WBC of 8.5, hemoglobin 9.8, platelets are 171. BMP showed sodium 130, potassium 3.8, chloride 92, bicarbonate is 29, BUN is 12, creatinine is 0.45, calcium is 7.6, magnesium is 1.7. CURRENT MEDICATIONS: Patient's medications were all reviewed by me. I have ordered a dose of magnesium sulfate 1 gram IV today. Her Lovenox is on hold. There is no other change in the medications today. ASSESSMENT: A 66-year-old female with multiple nodular lesions in the lung on recent imaging, had transferred to [facility] because of hyponatremia. PLAN: 1. Euvolemic hypotonic hyponatremia. It is secondary to syndrome of inappropriate secretion of antidiuretic hormone (SIADH), most likely secondary to lung pathology. Continue Lasix 20 mg intravenously (IV) twice a day. Sodium is fluctuating around 130, which is acceptable at this time. No need of Samsca administration. 2. Multiple pulmonary nodules and suspicious lesions on CT scan of the chest. The patient is pending bronchoscopy today. Further management after bronchoscopy and pathology reports. Pulmonology is already on board. 3. Hypertension. Continue Coreg and amlodipine. Hold the angiotensin-converting enzyme (JENNIFER) inhibitors, which can sometimes exacerbate hyponatremia. 4. Hypomagnesemia. The patient is getting a dose of magnesium sulfate today.
[2017-03-15] MEDS: IPRATROPIUM 0.5MG/ALBUTEROL 2.5MG INH SOL UD 3ML (DUONEB)(J7620) NEB SCH ×7 (00:01→23:20)
[2017-03-15 04:45] VITALS: BP 100/59
[2017-03-15 05:18] LABS: MEAN CORPUSCULAR HEMOGLOBIN 37.1 pg (27.0-33.0); MEAN CORPUSCULAR HGB CONC 35.8 g/dl (32.0-36.5); MEAN CORPUSCULAR VOLUME 103.5 fl (80.0-96.0); RED CELL DISTRIBUTION WIDTH 14.1 % (11.5-14.5); WHITE BLOOD COUNT 7.9 K/mm3 (4.0-10.0)
[2017-03-15] MEDS: SLF 3 ML SYR IV SCH ×3 (05:31→21:03)
[2017-03-15 05:36] LABS: ALBUMIN 2.7 GM/DL (3.2-5.2); ALBUMIN/GLOBULIN RATIO 0.77 (1.00-1.93); ALKALINE PHOSPHATASE 72 U/L (45-117); ALT/SGPT 28 U/L (12-78); ANION GAP 10 MEQ/L (8-16); AST/SGOT 45 U/L (15-37); BILIRUBIN,TOTAL 0.9 MG/DL (0.2-1.0); BLOOD UREA NITROGEN 15 MG/DL (7-18); CALCIUM LEVEL 7.8 MG/DL (8.8-10.2); CARBON DIOXIDE LEVEL 28 MEQ/L (21-32); CHLORIDE LEVEL 87 MEQ/L (98-107); CREATININE FOR GFR 0.39 MG/DL (0.55-1.02); GLOMERULAR FILTRATION RATE > 60.0 (>45); GLUCOSE, FASTING 191 MG/DL (80-110); MAGNESIUM LEVEL 2.1 MG/DL (1.8-2.4); POTASSIUM SERUM 4.6 MEQ/L (3.5-5.1); SODIUM LEVEL 125 MEQ/L (136-145); TOTAL PROTEIN 6.2 GM/DL (6.4-8.2)
[2017-03-15] MEDS: TIOTROPIUM INHALER/CAPSULE (SPIRIVA) INH SCH (07:13)
[2017-03-15 08:00] VITALS: BP 112/66
--- NOTE | 2017-03-15 08:49 | IPNPDOC ---
Subjective Date Seen The patient was seen on 03/15/17. Subjective Chief Complaint/HPI The patient is a 66-year-old female admitted with a reason for visit of Malignant Hyponatremia And Low Sodium. Events since last encounter Patient was seen this morning at bedside. She had a little anxiety last night but is doing well this morning. She remains on 5L O2. Breathing appears stable. No chest pain/pressure, lightheadedness, dizziness, nausea, vomiting, abd pain, diarrhea, fever, chills. Objective Physical Examination General Exam: Positive: Alert, Cooperative, No Acute Distress Eye Exam: Positive: Conjunctiva & lids normal, EOMI, Negative: Sclera icteric ENT Exam: Positive: Atraumatic, Mucous membr. moist/pink, Pharynx Normal Neck Exam: Positive: Supple, Negative: thyromegaly Chest Exam: Positive: Diminished (diminished more on the left and the bases) Heart Exam: Positive: Rate Normal, Regular Rhythm, Normal S1, Normal S2, Negative: Murmurs Abdomen Exam: Positive: Normal bowel sounds, Soft, Other (large ecchymoses on left lower flank area), Negative: Tenderness Extremity Exam: Positive: Normal pulses, Negative: Cyanosis, Edema, Tenderness Skin Exam: Positive: Nl turgor and temperature, Negative: Rash Neuro Exam: Positive: Normal Speech, Cranial Nerves 3-12 NL Psych Exam: Positive: Mental status NL, Mood NL, Oriented x 3 Assessment /Plan Problems (1) Hyponatremia Status: Acute Problem Specific Plan: Consult Specialist Problem Text: * Suspecting SIADH * Nephrology following * Placed on a 1200ml fluid restriction * Currently on IV Lasix BID * TSH and cortisol within normal. 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 * Also has a focal lesion on liver, hemangioma vs solid nodule (3) Alcohol abuse Status: Chronic Problem Text: * Liver ultrasound on 03/13 revealed 2 cysts in the liver, 2 focal hyperechoic nodular areas which could represent hemangioma or solid nodules * Continue with thiamine, folic acid and multivitamins daily * Counseled on alcohol abuse. Encouraged cessation. (4) CHF (congestive heart failure) Status: Chronic Problem Text: * Currently on IV Lasix * Echo on 03/13 revealed grade 1 diastolic dysfunction, LVEF of 70%, small pericardial effusion, moderate elevation of pulmonary artery systolic pressure * Had bilateral effusion, left greater than right and slight pericardial effusion seen on CT on 03/13 (5) Chronic respiratory failure with hypoxia Problem Text: * Currently requiring supplemental O2 * Has chronic SOB from COPD * Found to have multiple lymph nodes, pulmonary nodules and effusion (6) Hypertension Status: Chronic Problem Text: * Blood pressure stable * Currently on Norvasc and Coreg (7) COPD (chronic obstructive pulmonary disease) Status: Chronic Problem Text: * Patient is currently on supplemental O2, titrate to 88-92% * Monitor respiratory status * DuoNeb breathing treatments as needed, continue Spiriva (8) Irritable bowel syndrome Status: Chronic Problem Text: * Takes budesonide for chronic diarrhea (9) Cigarette smoker Problem Text: * Reports that she has smoked 2 packs a day for at least 50 years. * Continue with nicotine patch * Counseled on smoking cessation (10) Hypokalemia Status: Resolved Problem Text: * Oral potassium supplementation was given * Continue to monitor electrolytes while being diuresed Plan/VTE VTE Prophylaxis Ordered?: Yes (teds and sequentials) VS, I&O, 24H, Fishbone Vital Signs/I&O Vital Signs Date Time Temp Pulse Resp B/P (MAP) Pulse Ox O2 Delivery O2 Flow Rate FiO2 03/15/17 04:45 98.8 102 20 100/59 (73) 98 Nasal Cannula 5.0 03/14/17 19:45 50 I&O- Last 24 Hours up to 6 AM 03/15/17 05:59 Intake Total 1350 ml Output Total 550 ml Balance 800 ml Laboratory Data CBC/BMP Laboratory Tests 03/15/17 05:02 Red Blood Count 2.62 L, Mean Corpuscular Volume 103.5 H, Mean Corpuscular Hemoglobin 37.1 H, Mean Corpuscular Hemoglobin Concent 35.8, Red Cell Distribution Width 14.1, Calcium Level 7.8 L, Aspartate Amino Transf (AST/SGOT) 45 H, Alanine Aminotransferase (ALT/SGPT) 28, Alkaline Phosphatase 72, Total Bilirubin 0.9, Total Protein 6.2 L, Albumin 2.7 L VILCANT, VILIANE, DO March 15, 2017 08:49
[2017-03-15] MEDS ORDERED: FUROSEMIDE 20 MG/2 ML VIAL (J1940) IV SCH (09:00)
[2017-03-15] MEDS: MULTIVITAMINS/MINERALS THERAP 1 TAB PO SCH (09:00)
[2017-03-15] MEDS: NICOTINE 7 MG/24 HR TRANSDERMAL TD SCH (09:02)
[2017-03-15] MEDS: ASPIRIN 81 MG ENTERIC TAB PO SCH (09:02)
[2017-03-15] MEDS: BUDESONIDE EC 3 MG CAP (ENTOCORT EC) PO SCH (09:02)
[2017-03-15] MEDS: amLODIPine 5 MG TAB PO SCH (09:03)
[2017-03-15] MEDS: CARVedilol 12.5 MG TAB PO SCH ×2 (09:03→21:02)
[2017-03-15] MEDS: VITAMIN D 1,000 INTERNATIONAL UNITS TABLET PO SCH (09:03)
[2017-03-15] MEDS: FOLIC ACID 1 MG TAB PO SCH (09:04)
[2017-03-15] MEDS: THIAMINE 100 MG TAB PO SCH (09:04)
[2017-03-15] MEDS: FAMOTIDINE 20 MG TAB PO SCH ×2 (09:04→21:02)
[2017-03-15 12:00] VITALS: BP 114/70
[2017-03-15] MEDS: SODIUM CHLORIDE 1 GM TAB PO SCH (12:30)
[2017-03-15 16:00] VITALS: BP 114/58
--- NOTE | 2017-03-15 17:29 | CR ---
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 HISTORY OF PRESENT ILLNESS: Mrs. Jones is a 66-year-old woman who was transferred from [facility] after she presented with hyponatremia and confusion. She had a CT scan which showed massive mediastinal and hilar adenopathy with slight pericardial effusion and bilateral pleural effusions with multiple bilateral pulmonary nodules. She had a fine-needle aspiration of a subcarinal node, and this came back positive for malignancy. 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 The patient wanted a discussion on her treatment options, and medical oncology was therefore consulted for this. PAST MEDICAL HISTORY: Chronic obstructive pulmonary disease (COPD), congestive heart failure (CHF). PAST SURGICAL HISTORY: Carpal tunnel surgery. Rotator cuff surgery. Tonsillectomy. Tubal ligation. SOCIAL HISTORY: She is . She has two grown kids. She has smoked for the past 55 years up to two packs a day. PHYSICAL EXAMINATION: She was seated comfortably on the bed, not in distress. She had no oral mucosal lesions. LUNGS: Fair air entry with slightly decreased breath sounds on the bases. Occasional crackles. ABDOMEN: Soft, nontender, no guarding. EXTREMITIES: No calf swelling, calf tenderness, and no pedal edema. She had a huge hematoma on the left side of her abdomen. IMPRESSION AND PLAN: Mrs. 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 I discussed with Mrs. Jones that this is a very aggressive lung cancer with a very limited life expectancy. Traditionally this is treated with chemotherapy; however, chemotherapy only provides a modest extension of life expectancy and does not always work. I discussed the potential side effects of chemotherapy which include nausea, vomiting, bone marrow suppression with risk of infection, and fatigue among others. Mrs. Jones has decided to go ahead with chemotherapy which would be given with palliative intent. We will arrange to have her start it in [facility] as soon as possible. I recommend that she have further staging workup with a CT abdomen and pelvis, bone scan, and an MRI of the brain. I recommended that she have advanced care directives in place. Thank you for this referral. ERWIN
[2017-03-15] MEDS: FUROSEMIDE 20 MG TAB PO SCH (17:48)
[2017-03-15] MEDS ORDERED: GASTROGRAFIN SOLUTION 30ML PO ONE (17:50)
[2017-03-15] MEDS ORDERED: GASTROGRAFIN SOLUTION 30ML (Q9963) PO ONE (18:20)
[2017-03-15] MEDS ORDERED: ISOVUE-370 76% 100ML VIAL (Q9967) As Ordered ONE (18:45)
[2017-03-15 20:00] VITALS: BP 145/67
[2017-03-15] MEDS: SIMVASTATIN 10 MG TAB PO SCH (21:02)
--- NOTE | 2017-03-15 22:00 | IPN ---
DATE: 03/15/2017 SUBJECTIVE: Patient was seen and examined at the bedside this morning. Last 24 hour events are noted. Patient got bronchoscopy done yesterday. After the bronchoscopy, patient was told that she most likely has malignancy. Initially, she made herself COMFORT MEASURES ONLY, but later on, patient changed her mind; she wants FULL CODE and she wants to continue the aggressive management. 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 Patient's Lasix was stopped yesterday, so her sodium has again dropped to 125 this morning. Her renal function is stable at this time. REVIEW OF SYSTEMS: Patient denies any fever or chills, rigors, headache, nausea, vomiting or chest pain. She does report shortness of breath and cough. She denies any abdominal pain, constipation or diarrhea. The rest of the review of systems is negative. OBJECTIVE: VITAL SIGNS: Temperature 98 degrees Fahrenheit, blood pressure 114/70, pulse 105, respiratory rate 22, saturating 93% on nasal cannula at 5 liters. INTAKE AND OUTPUT: Urine output recorded is 150 mL yesterday, 1 liter so far today since overnight. Weight in the bed scale is 59.2 kg. PHYSICAL EXAMINATION: GENERAL: Patient is awake, alert, oriented times three, sitting in the bed, in mild respiratory distress and having intermittent cough. HEAD AND NECK EXAMINATION: Extraocular muscles intact. Pupils equally round and reactive to light. Mucous membranes are moist. Neck is supple. There is no jugular venous distention (JVD). CARDIOVASCULAR: S1, S2. Tachycardia. No murmurs, rubs or gallops. RESPIRATORY: Decreased breath sounds at the bases. Mild expiratory rhonchi at the bases, with some crepitations on deep inspiration. ABDOMEN: Soft. Positive bowel sounds. Nontender. No ascites. No organomegaly. EXTREMITIES: No clubbing or cyanosis. There is a 2+ trace edema of the bilateral lower extremities. CENTRAL NERVOUS SYSTEM: No focal neurological deficits. Power is 5/5 in all extremities. LABORATORY REVIEW: CBC showed a WBC 7.9, hemoglobin 9.7, platelets 198, BMP showed sodium 125, potassium 4.6, chloride 87, bicarbonate 28, BUN 15, creatinine 0.39, calcium 7.8, magnesium 2.1, albumin 2.7. 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 CURRENT MEDICATIONS: Patient's medications were all reviewed by me. She has been restarted on: - Lasix 20 mg by mouth twice a day She has been started on: - salt tablet 1 gram by mouth daily ASSESSMENT: A 66-year-old female with small-cell lung cancer which is biopsy proven now. Nephrology service following the patient for management of hyponatremia. PLAN: 1. Hyponatremia. It is secondary to syndrome of inappropriate antidiuretic hormone secretion. Continue Lasix 20 mg by mouth twice a day and continue salt tablet 1 gram by mouth daily. If patient's sodium stays around 130, that would be acceptable for her. 2. Small-cell lung cancer. Patient wants aggressive management and chemotherapy. She is pending evaluation by oncology service for further staging and initiation of chemotherapy. 3. Hypertension. Blood pressure is acceptable at this time. Continue Coreg and amlodipine.
[2017-03-15] MEDS ORDERED: traZODone 25MG PER 1/2 TABLET PO ONE (23:00)
[2017-03-16] VITALS (7 sets, daily range): BP systolic 110–134; BP diastolic 53–74; O2SAT 92
[2017-03-16] MEDS: IPRATROPIUM 0.5MG/ALBUTEROL 2.5MG INH SOL UD 3ML (DUONEB)(J7620) NEB SCH ×6 (03:35→23:20)
[2017-03-16 05:57] LABS: MEAN CORPUSCULAR HEMOGLOBIN 36.7 pg (27.0-33.0); RED CELL DISTRIBUTION WIDTH 14.1 % (11.5-14.5); WHITE BLOOD COUNT 11.5 K/mm3 (4.0-10.0)
[2017-03-16] MEDS: SLF 3 ML SYR IV SCH ×3 (06:02→21:44)
[2017-03-16 06:19] LABS: ALBUMIN 2.7 GM/DL (3.2-5.2); ALBUMIN/GLOBULIN RATIO 0.93 (1.00-1.93); ALKALINE PHOSPHATASE 68 U/L (45-117); ALT/SGPT 28 U/L (12-78); ANION GAP 8 MEQ/L (8-16); AST/SGOT 33 U/L (15-37); BILIRUBIN,TOTAL 0.7 MG/DL (0.2-1.0); BLOOD UREA NITROGEN 18 MG/DL (7-18); CALCIUM LEVEL 7.8 MG/DL (8.8-10.2); CARBON DIOXIDE LEVEL 32 MEQ/L (21-32); CHLORIDE LEVEL 85 MEQ/L (98-107); CREATININE FOR GFR 0.35 MG/DL (0.55-1.02); GLOMERULAR FILTRATION RATE > 60.0 (>45); GLUCOSE, FASTING 139 MG/DL (80-110); POTASSIUM SERUM 3.7 MEQ/L (3.5-5.1); SODIUM LEVEL 125 MEQ/L (136-145); TOTAL PROTEIN 5.6 GM/DL (6.4-8.2)
[2017-03-16] MEDS: TIOTROPIUM INHALER/CAPSULE (SPIRIVA) INH SCH (07:09)
[2017-03-16] MEDS ORDERED: AMLO5TAB2 PO (07:51)
[2017-03-16] MEDS ORDERED: ASPI81TAEC PO (07:51)
[2017-03-16] MEDS ORDERED: SIMV10TA2 PO (07:51)
[2017-03-16] MEDS ORDERED: VITMTA PO (07:51)
[2017-03-16] MEDS ORDERED: FAMO20TA PO (07:51)
[2017-03-16] MEDS ORDERED: BUDE3CAP PO (07:51)
[2017-03-16] MEDS ORDERED: NICO7PA TD (07:51)
[2017-03-16] MEDS ORDERED: TIOT18INH INH (07:51)
[2017-03-16] MEDS ORDERED: CARV12.5 PO (07:51)
[2017-03-16] MEDS ORDERED: FURO20TA2 PO (07:51)
[2017-03-16] MEDS ORDERED: THIA100TA PO (07:51)
[2017-03-16] MEDS ORDERED: FOLI1TAB2 PO (07:51)
[2017-03-16] MEDS ORDERED: VITAD1000T PO (07:51)
[2017-03-16] MEDS ORDERED: MIRALAX *UNIT DOSE* 17GM PACKET PO PRN (08:00)
[2017-03-16] MEDS ORDERED: BENZONATATE 100 MG CAP PO PRN (08:00)
--- NOTE | 2017-03-16 08:26 | IPNPDOC ---
Subjective Date Seen The patient was seen on 03/16/17. Subjective Chief Complaint/HPI The patient is a 66-year-old female admitted with a reason for visit of Malignant Hyponatremia And Low Sodium. Events since last encounter Patient was seen this morning at bedside. No acute overnight issues. She denies any increased SOB, but continues to have a cough which is not new. She denies any javan pain/pressure. No nausea, vomiting, lightheadedness, dizziness, abd pain, fever, chills, urinary complaints. She would like something for her bowels. Objective Physical Examination General Exam: Positive: Alert, Cooperative, No Acute Distress Eye Exam: Positive: Conjunctiva & lids normal, EOMI, Negative: Sclera icteric ENT Exam: Positive: Atraumatic, Mucous membr. moist/pink, Pharynx Normal Neck Exam: Positive: Supple, Negative: thyromegaly Chest Exam: Positive: Diminished (diminished more on the left and the bases) Heart Exam: Positive: Rate Normal, Regular Rhythm, Normal S1, Normal S2, Negative: Murmurs Abdomen Exam: Positive: Normal bowel sounds, Soft, Other (large ecchymoses on left lower flank area), Negative: Tenderness Extremity Exam: Positive: Normal pulses, Negative: Cyanosis, Edema, Tenderness Skin Exam: Positive: Nl turgor and temperature, Negative: Rash Neuro Exam: Positive: Normal Speech, Cranial Nerves 3-12 NL Psych Exam: Positive: Mental status NL, Mood NL, Oriented x 3 Assessment /Plan Problems (1) Hyponatremia Status: Acute Problem Specific Plan: Consult Specialist Problem Text: * Secondary to SIADH * Nephrology following * Placed on a 1000ml fluid restriction * Changed to po Lasix BID. Also on sodium chloride tablets daily * TSH and cortisol within normal. 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 * Also has a focal lesion on liver, hemangioma vs solid nodule (3) Small cell carcinoma Problem Text: * Will obtain further imaging for staging: abd/pelvis CT, brain MRI, bone scan * Abd/pelvis CT revealed ill defined lesions in the liver, too small to characterized. Left lobe lesion could possibly be a hemangioma * Other imaging will be done on Saturday * She was seen by Dr. Levy on 03/15, recommending palliative chemo * Will likely start chemo on Monday 03/19 (4) Alcohol abuse Status: Chronic Problem Text: * Liver ultrasound on 03/13 revealed 2 cysts in the liver, 2 focal hyperechoic nodular areas which could represent hemangioma or solid nodules, no reported cirrhosis * Continue with thiamine, folic acid and multivitamins daily * Counseled on alcohol abuse. Encouraged cessation. (5) CHF (congestive heart failure) Status: Chronic Problem Text: * Appears compensated * Echo on 03/13 revealed grade 1 diastolic dysfunction, LVEF of 70%, small pericardial effusion, moderate elevation of pulmonary artery systolic pressure * Effusion, left greater than right and slight pericardial effusion seen on CT on 03/13 (6) Chronic respiratory failure with hypoxia Problem Text: * Currently requiring supplemental O2 * Has chronic SOB from COPD as well * Found to have multiple lymph nodes and pulmonary nodules (7) Hypertension Status: Chronic Problem Text: * Blood pressure stable * Currently on Norvasc and Coreg (8) COPD (chronic obstructive pulmonary disease) Status: Chronic Problem Text: * Patient is currently on supplemental O2, titrate to 88-92% * Monitor respiratory status * DuoNeb breathing treatments as needed, continue Spiriva (9) Irritable bowel syndrome Status: Chronic Problem Text: * Takes budesonide for chronic diarrhea (10) Cigarette smoker Problem Text: * Reports that she has smoked 2 packs a day for at least 50 years. * Continue with nicotine patch * Counseled on smoking cessation (11) Hypokalemia Status: Resolved Problem Text: * Oral potassium supplementation was given * Continue to monitor electrolytes while being diuresed Plan/VTE VTE Prophylaxis Ordered?: Yes (teds and sequentials) Disposition Will likely be dc'ed on Saturday for chemo on Saturday. She was wondering if she could be dc'ed on Saturday so she can go straight to oncology appointment instead of having to go home again. We will have to call on Saturday and see if she could get a late appointment for chemo on Saturday. CODY was confirmed again this morning, she wishes to be DNR/DNI but would like to try palliative chemo VS, I&O, 24H, Fishbone Vital Signs/I&O Vital Signs Date Time Temp Pulse Resp B/P (MAP) Pulse Ox O2 Delivery O2 Flow Rate FiO2 03/16/17 04:00 Nasal Cannula 5.0 03/16/17 04:00 98.4 90 18 120/71 (87) 91 03/14/17 19:45 50 I&O- Last 24 Hours up to 6 AM 03/16/17 06:00 Intake Total 375 ml Output Total 1325 ml Balance -950 ml Laboratory Data CBC/BMP Laboratory Tests 03/16/17 05:25 Calcium Level 7.8 L, Aspartate Amino Transf (AST/SGOT) 33, Alanine Aminotransferase (ALT/SGPT) 28, Alkaline Phosphatase 68, Total Bilirubin 0.7, Total Protein 5.6 L, Albumin 2.7 L 03/16/17 05:26 Red Blood Count 2.25 L, Mean Corpuscular Volume 102.0 H, Mean Corpuscular Hemoglobin 36.7 H, Mean Corpuscular Hemoglobin Concent 36.0, Red Cell Distribution Width 14.1 GME ATTESTATION GME ATTESTATION My preceptor for this patient encounter was physically present in the building during the encounter and was fully available. As needed, all aspects of the patient interview, examination, medical decision making process, and medical care plan development were reviewed and approved by the preceptor. Preceptor is aware and concurs with the plan as stated in the body of this note and will attest to such by his/her cosignature. ALDO ALVES DO March 16, 2017 08:26
[2017-03-16] MEDS: FAMOTIDINE 20 MG TAB PO SCH ×2 (08:27→21:43)
[2017-03-16] MEDS: amLODIPine 5 MG TAB PO SCH (08:27)
[2017-03-16] MEDS: FOLIC ACID 1 MG TAB PO SCH (08:27)
[2017-03-16] MEDS: DOCUSATE SODIUM 100 MG CAP PO SCH ×2 (08:27→21:43)
[2017-03-16] MEDS: FUROSEMIDE 20 MG TAB PO SCH ×2 (08:27→17:27)
[2017-03-16] MEDS: CARVedilol 12.5 MG TAB PO SCH ×2 (08:28→21:43)
[2017-03-16] MEDS: BUDESONIDE EC 3 MG CAP (ENTOCORT EC) PO SCH (08:28)
[2017-03-16] MEDS: SODIUM CHLORIDE 1 GM TAB PO SCH ×2 (08:28→21:43)
[2017-03-16] MEDS: MULTIVITAMINS/MINERALS THERAP 1 TAB PO SCH ×2 (08:28→08:58)
[2017-03-16] MEDS: ASPIRIN 81 MG ENTERIC TAB PO SCH (08:28)
[2017-03-16] MEDS: NICOTINE 7 MG/24 HR TRANSDERMAL TD SCH (08:29)
[2017-03-16] MEDS: THIAMINE 100 MG TAB PO SCH (08:31)
[2017-03-16] MEDS: VITAMIN D 1,000 INTERNATIONAL UNITS TABLET PO SCH (08:31)
--- NOTE | 2017-03-16 12:36 | REPUSA ---
CT of the abdomen and pelvis with contrast Clinical statement: lliver lesion, history of small cell carcinoma. Technique: Multiple axial CT images were obtained from the base of the lungs through the floor of the pelvis utilizing 5 mm axial slices after administration of oral and nonionic intravenous contrast. C oronal and sagittal reconstructions were also obtained. No comparison is available. Findings: Chest: There are extensive bilateral perihilar interstitial changes. There is a moderate left-sided pleural effusion with left lower lobe infiltrate. There is a small right-sided pleural effusion as w ell. Abdomen: The spleen, pancreas, kidneys, gallbladder, and adrenal glands are unremarkable. There is a small ill-defined low attenuation lesion in segment VIII of the liver measuring 1.0 x 0.8 cm. There is a low attenuation lesion with peripheral enhancement in segment II, measuring 1.1 x 0.9 cm. The ao rta is within normal limits. There is no evidence of abdominal lymphadenopathy or ascites. Pelvis: The bowel is unremarkable, with no obstructive or inflammatory changes. The urinary bladder i s within normal limits. The other pelvic structures appear grossly intact. There is no evidence of pe lvic lymphadenopathy or ascites. Bones: There are no suspicious osseous abnormalities seen. Moderately severe degenerative disc diseas e is noted at L3/L4, L4/L5, and L5/S1. Mild anterior compression abnormality is noted at T12. Impression: 1. Small low attenuation ill-defined lesions of the liver, too small to fully characterize. The lesio n in the left lobe demonstrates peripheral enhancement, and could represent a hemangioma. However, ul trasound or MRI for further characterizes these lesions is recommended. No other hepatic masses are n oted. 2. Extensive bilateral perihilar infiltrates. Moderate left-sided pleural effusion with left lower lo be infiltrate. Small right-sided pleural effusion. 3. The adrenal glands are grossly unremarkable bilaterally. 4. No obstructive or inflammatory bowel changes. 5. Moderate degenerative disc disease from L3 through S1. Mild anterior compression abnormality of T1 2.
[2017-03-16] MEDS: SIMVASTATIN 10 MG TAB PO SCH (21:43)
[2017-03-17] VITALS (7 sets, daily range): BP systolic 124–137; BP diastolic 69–76; O2SAT 92–98
[2017-03-17] MEDS: IPRATROPIUM 0.5MG/ALBUTEROL 2.5MG INH SOL UD 3ML (DUONEB)(J7620) NEB SCH ×5 (03:19→17:51)
[2017-03-17 06:05] LABS: MEAN CORPUSCULAR HEMOGLOBIN 37.1 pg (27.0-33.0); MEAN CORPUSCULAR HGB CONC 35.9 g/dl (32.0-36.5); MEAN CORPUSCULAR VOLUME 103.2 fl (80.0-96.0); RED CELL DISTRIBUTION WIDTH 13.6 % (11.5-14.5); WHITE BLOOD COUNT 9.2 K/mm3 (4.0-10.0)
[2017-03-17] MEDS: SLF 3 ML SYR IV SCH ×3 (06:23→21:16)
[2017-03-17 06:33] LABS: ALBUMIN 2.8 GM/DL (3.2-5.2); ALBUMIN/GLOBULIN RATIO 0.97 (1.00-1.93); ALKALINE PHOSPHATASE 78 U/L (45-117); ALT/SGPT 27 U/L (12-78); ANION GAP 9 MEQ/L (8-16); AST/SGOT 40 U/L (15-37); BILIRUBIN,TOTAL 0.8 MG/DL (0.2-1.0); BLOOD UREA NITROGEN 15 MG/DL (7-18); CALCIUM LEVEL 7.5 MG/DL (8.8-10.2); CARBON DIOXIDE LEVEL 33 MEQ/L (21-32); CHLORIDE LEVEL 82 MEQ/L (98-107); CREATININE FOR GFR 0.29 MG/DL (0.55-1.02); GLOMERULAR FILTRATION RATE > 60.0 (>45); GLUCOSE, FASTING 116 MG/DL (80-110); MAGNESIUM LEVEL 1.7 MG/DL (1.8-2.4); SODIUM LEVEL 124 MEQ/L (136-145); TOTAL PROTEIN 5.7 GM/DL (6.4-8.2)
[2017-03-17] MEDS ORDERED: FUROSEMIDE 20 MG/2 ML VIAL (J1940) IV ONE (07:45)
[2017-03-17] MEDS ORDERED: POTASSIUM CHLORIDE 10 MEQ SR TABLET PO ONE ×2 (07:45→16:00)
[2017-03-17] MEDS: TIOTROPIUM INHALER/CAPSULE (SPIRIVA) INH SCH (08:02)
[2017-03-17] MEDS: MULTIVITAMINS/MINERALS THERAP 1 TAB PO SCH (08:25)
[2017-03-17] MEDS: MAG SULF 1GM/100ML (MAG RUN) 1 GM in APPROPRIATE DILUENT 1 EA IV SCH ×2 (08:25→10:15)
[2017-03-17] MEDS: FUROSEMIDE 20 MG TAB PO SCH ×2 (08:27→16:27)
[2017-03-17] MEDS: FAMOTIDINE 20 MG TAB PO SCH ×2 (08:27→21:15)
[2017-03-17] MEDS: FOLIC ACID 1 MG TAB PO SCH (08:27)
[2017-03-17] MEDS: BUDESONIDE EC 3 MG CAP (ENTOCORT EC) PO SCH (08:27)
[2017-03-17] MEDS: THIAMINE 100 MG TAB PO SCH (08:27)
[2017-03-17] MEDS: SODIUM CHLORIDE 1 GM TAB PO SCH ×2 (08:28→21:15)
[2017-03-17] MEDS: NICOTINE 7 MG/24 HR TRANSDERMAL TD SCH (08:29)
[2017-03-17] MEDS: CARVedilol 12.5 MG TAB PO SCH ×2 (08:30→21:15)
[2017-03-17] MEDS: amLODIPine 5 MG TAB PO SCH (08:30)
[2017-03-17] MEDS: VITAMIN D 1,000 INTERNATIONAL UNITS TABLET PO SCH (09:00)
[2017-03-17] MEDS: DOCUSATE SODIUM 100 MG CAP PO SCH ×2 (09:00→21:14)
[2017-03-17] MEDS: ASPIRIN 81 MG ENTERIC TAB PO SCH (09:00)
[2017-03-17] MEDS: POTASSIUM CHLORIDE 10 MEQ SR TABLET PO SCH (10:15)
[2017-03-17] MEDS ORDERED: TOLVAPTAN 7.5 MG HALF-TAB PO ONE (16:00)
[2017-03-17] MEDS: ALPRAZolam 0.25 MG TAB PO PRN (18:37)
--- NOTE | 2017-03-17 21:07 | IPN ---
DATE: 03/17/2017 Patient is seen and examined at the bedside. Chart has been reviewed. She currently denies any confusion, headache, seizure disorder, changes in vision. She is awake, alert, oriented, answering questions appropriately. She does have increasing shortness of breath, currently requiring 5 liters nasal cannula. No chest pain, pressure, tightness, lightheadedness, or near syncope. Complains of fatigue and weakness. Temperature 97.6, pulse 75, respiratory rate 22, blood pressure 137/76, 92% on 5 liters nasal cannula. GENERAL: She is awake, alert, oriented to person, place, and time. Pupils round and reactive. Moist mucous membranes. No thyromegaly. LUNGS: Diminished, left greater than right. HEART: S1, S2, sinus rhythm. ABDOMEN: Soft, nontender, nondistended. Ecchymotic areas left lower flank. EXTREMITIES: No pitting edema. LABORATORY DATA: White count 9.2, hemoglobin 9.2, hematocrit 25, platelet count 248. Sodium 124, potassium 3, chloride 82, bicarbonate 33, BUN 15, creatinine 0.29, glucose 116, BNP of 122. IMAGING STUDIES: CT abdomen and pelvis, hemangioma. MRI, no other hepatic masses, moderate left-sided pleural effusion, left lower lobe infiltrate and small right pleural effusion. ASSESSMENT AND PLAN: This is a 66-year-old female with small pericardial effusion, ejection fraction (EF) 70%, grade 1 diastolic dysfunction, pulmonary artery (PA) pressure 46 mmHg, active smoker, chronic obstructive pulmonary disease (COPD), congestive heart failure (CHF), transferred from [facility] for management of hyponatremia and multiple nodules. Patient was found to have syndrome of inappropriate antidiuretic hormone (SIADH), was placed on fluid restriction, IV Lasix, changed to oral Lasix. Pathology report after bronchoscopy with cytology and fine needle biopsy showed positive for malignancy, poorly differentiated neuroendocrine carcinoma, small cell carcinoma. Patient was offered palliative chemotherapy which she accepted. Current issues are as follows: 1. Syndrome of inappropriate antidiuretic hormone (SIADH) with persistent hyponatremia. Currently on fluid restriction, 1 liter daily. Sodium tablets and Lasix twice a day. 2. 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 Currently being evaluated for palliative chemotherapy, Dr. Levy hematology/oncology, has been consulted and requested a CT abdomen and pelvis, MRI of the brain, and bone scan, which will all be done on Saturday. 3. Left pleural effusion, moderately sized, with increasing respiratory distress. Will send for ultrasound guided thoracentesis for therapeutic purposes. 4. History of alcohol abuse. Liver ultrasound shows two cysts, most likely hemangiomas. No reported history of cirrhosis in the past. 5. Congestive heart failure (CHF), chronic, ejection fraction (EF) of 70%, diastolic dysfunction, compensated at this time. 6. Chronic respiratory failure with hypoxia from chronic obstructive pulmonary disease (COPD) and recent diagnosis of pleural effusion and small cell lung cancer with neuroendocrine carcinoma. Currently on supplemental oxygen. 7. History of irritable bowel syndrome, chronic. 8. Electrolyte abnormalities, supplemented.
[2017-03-17] MEDS: SIMVASTATIN 10 MG TAB PO SCH (21:14)
[2017-03-18] MEDS: IPRATROPIUM 0.5MG/ALBUTEROL 2.5MG INH SOL UD 3ML (DUONEB)(J7620) NEB SCH ×7 (00:04→23:48)
[2017-03-18] MEDS: ALPRAZolam 0.25 MG TAB PO PRN ×2 (00:16→10:28)
--- NOTE | 2017-03-18 02:39 | IPN ---
DATE OF SERVICE: 03/17/2017 Ms. Jones is seen this afternoon on her bedside. She is being followed by nephrology for hyponatremia. She has been diagnosed with small-cell lung cancer and is felt to have hyponatremia secondary to "syndrome of inappropriate secretion of antidiuretic hormone (SIADH)." She has been treated with oral sodium chloride tablets and Lasix. Last 48 hours, her sodium level has been essentially stable at 125. The patient is currently FULL CODE and she wishes to undergo chemotherapy, which is being planned for next week. Initially, she had made herself comfort measures only, but then changed her mind. She is not feeling good and does not eat well. She has dyspnea, but denies any chest pain or hemoptysis. She has no nausea or vomiting, but her appetite is poor. Intake and output records from yesterday showed total intake only 480 and output 500 mL. PHYSICAL EXAMINATION: Temperature 97.6 degrees Fahrenheit, heart rate 88 per minute and respiratory rate 22 per minute. Blood pressure 124/69 mmHg and oxygen saturation between 91 and 94% on 4-5 liters of oxygen. Head is atraumatic. Neck veins are not abnormally distended. There is no thyroid enlargement and neck is supple. Ears, nose and throat are unremarkable. Lungs have markedly diminished breath sounds on left side and moderately diminished breath sounds at the right base. Heart sounds are regular. There is no pericardial friction rub or murmur. Abdomen: Soft and nontender and bowel sounds are normal. Extremities have no cyanosis or clubbing. Skin has no rash or ulcers. Neurologically, she is awake, alert and oriented times three. Today's labs show sodium level 124 and potassium 3.0. Calcium level 7.5 and magnesium 1.7. A BNP 122. Total protein 5.7 and albumin 2.7. WBC count 9.2, hemoglobin 9.2 and hematocrit 25.7. She had a CT scan of abdomen and pelvis done on 03/15, which showed bilateral pleural effusions bigger on the left than right. She has extensive perihilar infiltrates. PROBLEMS: 1. Hyponatremia. Most likely related to syndrome of inappropriate secretion of antidiuretic hormone (SIADH) caused by small-cell lung cancer. She has bilateral pleural effusions. She is following her fluid restriction well. However, sodium level is not improving with sodium chloride tablets and oral Lasix in low dose. I had increased her sodium chloride tablets two twice a day yesterday, which did not make any significant difference, rather sodium is slightly lower today. The patient will be given one dose of Samsca 7.5 mg today and we will monitor her urine output. 2. Hypokalemia. This is related to Lasix use and poor oral intake of diet. The patient received one dose of potassium chloride 40 mEq this morning and will give her another dose this afternoon of 40 mEq. We will continue to monitor her electrolytes on daily basis. 3. Bilateral pleural effusions. Most likely related to her pulmonary involvement. She has bilateral infiltrates. We will try to keep her in a negative fluid balance. 4. Hypomagnesemia. Her magnesium level has already been replaced with magnesium sulfate.
[2017-03-18 06:00] VITALS: BP 155/70
[2017-03-18] MEDS: SLF 3 ML SYR IV SCH ×3 (06:19→21:41)
[2017-03-18 06:50] LABS: MEAN CORPUSCULAR HEMOGLOBIN 36.7 pg (27.0-33.0); MEAN CORPUSCULAR VOLUME 99.2 fl (80.0-96.0)
[2017-03-18 07:11] LABS: ALBUMIN/GLOBULIN RATIO 1.15 (1.00-1.93); ALKALINE PHOSPHATASE 79 U/L (45-117); ALT/SGPT 34 U/L (12-78); ANION GAP 10 MEQ/L (8-16); AST/SGOT 43 U/L (15-37); BILIRUBIN,TOTAL 1.6 MG/DL (0.2-1.0); BLOOD UREA NITROGEN 8 MG/DL (7-18); CALCIUM LEVEL 7.7 MG/DL (8.8-10.2); CARBON DIOXIDE LEVEL 32 MEQ/L (21-32); CHLORIDE LEVEL 78 MEQ/L (98-107); CREATININE FOR GFR 0.32 MG/DL (0.55-1.02); GLOMERULAR FILTRATION RATE > 60.0 (>45); GLUCOSE, FASTING 107 MG/DL (80-110); POTASSIUM SERUM 3.8 MEQ/L (3.5-5.1); SODIUM LEVEL 120 MEQ/L (136-145); TOTAL PROTEIN 5.6 GM/DL (6.4-8.2)
[2017-03-18] MEDS: TIOTROPIUM INHALER/CAPSULE (SPIRIVA) INH SCH (07:14)
[2017-03-18] MEDS ORDERED: TOLVAPTAN 7.5 MG HALF-TAB PO ONE (07:30)
--- NOTE | 2017-03-18 10:14 | IPNPDOC ---
Subjective Date Seen The patient was seen on 03/18/17. Subjective Chief Complaint/HPI The patient is a 66-year-old female admitted with a reason for visit of Malignant Hyponatremia And Low Sodium. Events since last encounter Patient was seen this morning at bedside. No acute overnight issues. She is requesting some durable medical equipment for home and scripts have been provided. She denies any increased SOB, chest pain/pressure, nausea, vomiting, lightheadedness, dizziness, abd pain, diarrhea, fever, chills. Objective Physical Examination General Exam: Positive: Alert, Cooperative, No Acute Distress Eye Exam: Positive: Conjunctiva & lids normal, EOMI, Negative: Sclera icteric ENT Exam: Positive: Atraumatic, Mucous membr. moist/pink, Pharynx Normal Neck Exam: Positive: Supple, Negative: thyromegaly Chest Exam: Positive: Diminished (diminished more on the left and the bases) Heart Exam: Positive: Rate Normal, Regular Rhythm, Normal S1, Normal S2, Negative: Murmurs Abdomen Exam: Positive: Normal bowel sounds, Soft, Other (large ecchymoses on left lower flank area), Negative: Tenderness Extremity Exam: Positive: Normal pulses, Negative: Cyanosis, Edema, Tenderness Skin Exam: Positive: Nl turgor and temperature, Negative: Rash Neuro Exam: Positive: Normal Speech, Cranial Nerves 3-12 NL Psych Exam: Positive: Mental status NL, Oriented x 3 Assessment /Plan Problems (1) Hyponatremia Status: Acute Problem Specific Plan: Consult Specialist Problem Text: * Secondary to SIADH * Nephrology following * Placed on a 1000ml fluid restriction * Lasix dc'ed yesterday. Given Samsca x 2 doses. Also on sodium chloride tablets daily * Continue to monitor sodium levels, currently 120 * BMP q4h (2) Pulmonary nodules/lesions, multiple Problem Text: * Patient had numerous pulm nodules on chest CT, some of which are spiculated with massive adenopathy * Status post bronchoscopy with ultrasound-guided biopsy on 03/14 * 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 * Also has a focal lesion on liver, hemangioma vs solid nodule (3) Small cell carcinoma Problem Text: * Will obtain further imaging for staging * Brain MRI and bone scan to be done today. Only one view of MRI was able to be obtained because patient could not lay flat and she is refusing bone scan because she states that she cannot lay flat for it * Abd/pelvis CT revealed ill defined lesions in the liver, too small to characterized. Left lobe lesion could possibly be a hemangioma * She was seen by Dr. Levy on 03/15, recommending palliative chemo * Will likely start chemo on Monday 03/19 (4) Pleural effusion Problem Text: * Moderate left sided effusion * Will have therapeutic thoracentesis today (5) CHF (congestive heart failure) Status: Chronic Problem Text: * Appears stable * Echo on 03/13 revealed grade 1 diastolic dysfunction, LVEF of 70%, small pericardial effusion, moderate elevation of pulmonary artery systolic pressure * Effusion, left greater than right and slight pericardial effusion seen on CT on 03/13 (6) Chronic respiratory failure with hypoxia Problem Text: * Requiring supplemental O2 * Has history of being on O2 at home, script provided for O2 concentrator * Has chronic SOB from COPD (7) Hypertension Status: Chronic Problem Text: * Blood pressure stable * Currently on Norvasc and Coreg (8) COPD (chronic obstructive pulmonary disease) Status: Chronic Problem Text: * Patient is on supplemental O2, titrate to 88-92% * Monitor respiratory status * DuoNeb breathing treatments as needed, continue Spiriva (9) Alcohol abuse Status: Chronic Problem Text: * Liver ultrasound on 03/13 revealed 2 cysts in the liver, 2 focal hyperechoic nodular areas which could represent hemangioma or solid nodules, no reported cirrhosis * Continue with thiamine, folic acid and multivitamins daily * Counseled on alcohol abuse. Encouraged cessation. (10) Irritable bowel syndrome Status: Chronic Problem Text: * Takes budesonide for chronic diarrhea (11) Cigarette smoker Problem Text: * Reports that she has smoked 2 packs a day for at least 50 years. * Continue with nicotine patch * Counseled on smoking cessation Plan/VTE VTE Prophylaxis Ordered?: Yes (teds and sequentials) Disposition Patient will likely be discharged tomorrow to go to medical oncology appointment at 1pm, contingent upon improvement in sodium levels. VS, I&O, 24H, Fishbone Vital Signs/I&O Vital Signs Date Time Temp Pulse Resp B/P (MAP) Pulse Ox O2 Delivery O2 Flow Rate FiO2 03/18/17 06:00 97.8 97 18 155/70 (98) 91 Nasal Cannula 4.0 03/14/17 19:45 50 I&O- Last 24 Hours up to 6 AM 5/8/17 06:00 Intake Total 740 ml Output Total 1600 ml Balance -860 ml Laboratory Data CBC/BMP Laboratory Tests 03/18/17 06:33 Red Blood Count 2.81 L, Mean Corpuscular Volume 99.2 H, Mean Corpuscular Hemoglobin 36.7 H, Mean Corpuscular Hemoglobin Concent 37.0 H, Red Cell Distribution Width 14.0, Calcium Level 7.7 L, Aspartate Amino Transf (AST/SGOT) 43 H, Alanine Aminotransferase (ALT/SGPT) 34, Lactate Dehydrogenase 418 H, Alkaline Phosphatase 79, Total Bilirubin 1.6 #H, Total Protein 5.6 L, Albumin 3.0 L GME ATTESTATION GME ATTESTATION My preceptor for this patient encounter was physically present in the building during the encounter and was fully available. As needed, all aspects of the patient interview, examination, medical decision making process, and medical care plan development were reviewed and approved by the preceptor. Preceptor is aware and concurs with the plan as stated in the body of this note and will attest to such by his/her cosignature. ALDO ALVES DO March 18, 2017 10:14
[2017-03-18] MEDS: BUDESONIDE EC 3 MG CAP (ENTOCORT EC) PO SCH (10:27)
[2017-03-18] MEDS: POTASSIUM CHLORIDE 10 MEQ SR TABLET PO SCH (10:28)
[2017-03-18] MEDS: amLODIPine 5 MG TAB PO SCH (10:28)
[2017-03-18] MEDS: MULTIVITAMINS/MINERALS THERAP 1 TAB PO SCH (10:28)
[2017-03-18] MEDS: FAMOTIDINE 20 MG TAB PO SCH ×2 (10:29→21:38)
[2017-03-18] MEDS: VITAMIN D 1,000 INTERNATIONAL UNITS TABLET PO SCH (10:29)
[2017-03-18] MEDS: SODIUM CHLORIDE 1 GM TAB PO SCH ×2 (10:29→21:37)
[2017-03-18] MEDS: CARVedilol 12.5 MG TAB PO SCH ×2 (10:29→21:39)
[2017-03-18] MEDS: ASPIRIN 81 MG ENTERIC TAB PO SCH (10:29)
[2017-03-18] MEDS: FOLIC ACID 1 MG TAB PO SCH (10:30)
[2017-03-18] MEDS: DOCUSATE SODIUM 100 MG CAP PO SCH ×2 (10:30→21:38)
[2017-03-18] MEDS: NICOTINE 7 MG/24 HR TRANSDERMAL TD SCH (10:30)
[2017-03-18] MEDS: THIAMINE 100 MG TAB PO SCH (10:30)
--- NOTE | 2017-03-18 11:32 | IPN ---
DATE: 03/18/2017 Ms. Jones is seen this morning on her bedside. She is not feeling well and reports feeling very weak and short of breath. She is getting ready to go down for MRI and thoracentesis. She has known bilateral pleural effusions with recent diagnosis of small-cell lung cancer. She had hyponatremia, felt to be related to syndrome of inappropriate secretion of antidiuretic hormone. Yesterday, she was given one dose of Samsca 7.5 mg and did have some negative fluid balance. She has also been receiving oral Lasix in low-dose and sodium chloride tablets 1 gram twice a day. PHYSICAL EXAMINATION: On physical examination today, temperature is 97.8 degrees Fahrenheit, heart rate 98 per minute and respiratory rate 18 per minute. Blood pressure 155/70 mmHg and oxygen saturation 91% on 4 liters oxygen. Her heart sounds are somewhat tachycardiac. Head is atraumatic. Neck is supple and without jugular venous distention (JVD) or thyroid enlargement. Lungs have markedly diminished breath sounds on the left side. Right side sounds much clearer with a few basilar rales. Abdomen is soft and nontender. Extremities have no cyanosis or clubbing. Skin has no rash or ulcers. Neurologically, she is awake and alert and oriented times three. Today's labs show WBC count 8.0, hemoglobin 10.3 and hematocrit 27.8. Sodium is down to 120 and potassium 3.8. Chloride 78, CO2 of 32, BUN 8 and creatinine 0.32. Magnesium level is 2.0. PROBLEMS: 1. Hyponatremia. Sodium level has worsened despite negative fluid balance with one dose of Samsca 7.5 mg. I am going to stop her Lasix and give her another dose of Samsca 7.5 mg today. We will recheck her electrolytes in a few hours. If her sodium level gets any worse, then we will consider giving her 3% saline for oral sodium chloride tablets in increased dose. She has significant problem with bilateral pleural effusions and small-cell lung cancer. There is a plan for discharging her with chemotherapy within the next 48 hours. 2. Hypokalemia. Potassium level has improved with supplement. We will continue to supplement her potassium and recheck her electrolytes later today. 3. Small-cell lung cancer. The patient has been diagnosed during this admission. There is a plan for starting chemotherapy this week. It remains to be seen if she is medically stable for discharge and starting chemo. Unfortunately, her prognosis remains poor. 4. Hypoxemia. The patient has bilateral pleural effusions and there is a plan for thoracentesis later today. She has a large pleural effusion on the left side and small one on the right. I will hope that will help to improve her hypoxemia. ERWIN
--- NOTE | 2017-03-18 13:08 | REP ---
MRI study of the brain without contrast: Incomplete exam. History: Evaluate for mass. Staging for small cell carcinoma. Technique: The patient was unable to breathe properly laying supine and the examination could not be completed. Only an initial motion degraded T2-weighted axial sequence was acquired. No obvious mass lesion is seen on this imaging sequence. Impression: Incomplete study. Signed by Roger Polanco MD 03/18/2017 03:43 P
--- NOTE | 2017-03-18 13:34 | REP ---
CHEST: Single view of the chest is performed. The patient is status post left thoracentesis. There is no pneumothorax. There are bibasilar infiltrates. There is evidence of hilar adenopathy. IMPRESSION: No pneumothorax status post left thoracentesis. Signed by Aditya Calvillo MD 03/19/2017 04:02 P
[2017-03-18 14:00] VITALS: BP 126/62
[2017-03-18 14:18] LABS: LDH, BODY FLUID 170 U/L (NOT ESTABLISHED); RBC PLEURAL FLUID < 10 (<10mm3 cells/uL); TNC PLEURAL FLUID 683 cells/uL (0-20); TOTAL PROTEIN, BODY FLUID 2.7 G/DL (NOT ESTABLISHED)
[2017-03-18 14:20] LABS: BF DIFF IF INDICATED? YES (NO)
[2017-03-18 14:29] LABS: ANION GAP 10 MEQ/L (8-16); BLOOD UREA NITROGEN 9 MG/DL (7-18); CARBON DIOXIDE LEVEL 31 MEQ/L (21-32); CHLORIDE LEVEL 79 MEQ/L (98-107); GLOMERULAR FILTRATION RATE > 60.0 (>45); GLUCOSE, FASTING 121 MG/DL (80-110); POTASSIUM SERUM 4.3 MEQ/L (3.5-5.1); SODIUM LEVEL 120 MEQ/L (136-145)
[2017-03-18 14:47] LABS: CC BF DIFF EXAM CYTOCENTRIFUGE
[2017-03-18] MEDS ORDERED: TOLVAPTAN 15 MG TAB (SAMSCA) PO ONE (16:45)
[2017-03-18 17:37] LABS: ANION GAP 9 MEQ/L (8-16); BLOOD UREA NITROGEN 10 MG/DL (7-18); CALCIUM LEVEL 7.7 MG/DL (8.8-10.2); CARBON DIOXIDE LEVEL 30 MEQ/L (21-32); CHLORIDE LEVEL 80 MEQ/L (98-107); CREATININE FOR GFR 0.29 MG/DL (0.55-1.02); GLOMERULAR FILTRATION RATE > 60.0 (>45); GLUCOSE, FASTING 113 MG/DL (80-110); POTASSIUM SERUM 4.6 MEQ/L (3.5-5.1); SODIUM LEVEL 119 MEQ/L (136-145)
[2017-03-18 21:19] LABS: ANION GAP 11 MEQ/L (8-16); BLOOD UREA NITROGEN 10 MG/DL (7-18); CALCIUM LEVEL 8.4 MG/DL (8.8-10.2); CARBON DIOXIDE LEVEL 28 MEQ/L (21-32); CHLORIDE LEVEL 82 MEQ/L (98-107); CREATININE FOR GFR 0.33 MG/DL (0.55-1.02); GLOMERULAR FILTRATION RATE > 60.0 (>45); GLUCOSE, FASTING 102 MG/DL (80-110); POTASSIUM SERUM 4.7 MEQ/L (3.5-5.1); SODIUM LEVEL 121 MEQ/L (136-145)
[2017-03-18] MEDS: SIMVASTATIN 10 MG TAB PO SCH (21:39)
[2017-03-18 22:00] VITALS: BP 119/60
[2017-03-19] MEDS: ALPRAZolam 0.25 MG TAB PO PRN ×4 (00:43→18:28)
[2017-03-19 01:58] LABS: ANION GAP 11 MEQ/L (8-16); BLOOD UREA NITROGEN 9 MG/DL (7-18); CALCIUM LEVEL 7.9 MG/DL (8.8-10.2); CARBON DIOXIDE LEVEL 29 MEQ/L (21-32); CHLORIDE LEVEL 84 MEQ/L (98-107); CREATININE FOR GFR 0.37 MG/DL (0.55-1.02); GLOMERULAR FILTRATION RATE > 60.0 (>45); GLUCOSE, FASTING 103 MG/DL (80-110); POTASSIUM SERUM 4.4 MEQ/L (3.5-5.1); SODIUM LEVEL 124 MEQ/L (136-145)
[2017-03-19] MEDS: IPRATROPIUM 0.5MG/ALBUTEROL 2.5MG INH SOL UD 3ML (DUONEB)(J7620) NEB SCH ×5 (03:43→19:38)
[2017-03-19 05:54] LABS: MEAN CORPUSCULAR HEMOGLOBIN 36.3 pg (27.0-33.0); MEAN CORPUSCULAR HGB CONC 36.2 g/dl (32.0-36.5); MEAN CORPUSCULAR VOLUME 100.4 fl (80.0-96.0); RED CELL DISTRIBUTION WIDTH 14.1 % (11.5-14.5)
[2017-03-19 06:00] VITALS: BP 118/56
[2017-03-19 06:02] LABS: ALBUMIN 2.7 GM/DL (3.2-5.2); ALBUMIN/GLOBULIN RATIO 0.96 (1.00-1.93); ALKALINE PHOSPHATASE 75 U/L (45-117); ALT/SGPT 30 U/L (12-78); ANION GAP 11 MEQ/L (8-16); AST/SGOT 36 U/L (15-37); BILIRUBIN,TOTAL 1.3 MG/DL (0.2-1.0); BLOOD UREA NITROGEN 9 MG/DL (7-18); CALCIUM LEVEL 7.9 MG/DL (8.8-10.2); CARBON DIOXIDE LEVEL 29 MEQ/L (21-32); CHLORIDE LEVEL 84 MEQ/L (98-107); CREATININE FOR GFR 0.34 MG/DL (0.55-1.02); GLOMERULAR FILTRATION RATE > 60.0 (>45); GLUCOSE, FASTING 88 MG/DL (80-110); MAGNESIUM LEVEL 2.1 MG/DL (1.8-2.4); POTASSIUM SERUM 4.2 MEQ/L (3.5-5.1); SODIUM LEVEL 124 MEQ/L (136-145); TOTAL PROTEIN 5.5 GM/DL (6.4-8.2)
[2017-03-19] MEDS: SLF 3 ML SYR IV SCH ×3 (06:27→21:42)
[2017-03-19] MEDS: TIOTROPIUM INHALER/CAPSULE (SPIRIVA) INH SCH (07:29)
--- NOTE | 2017-03-19 08:01 | REP ---
ULTRASOUND GUIDED LEFT THORACENTESIS: The procedure was performed under the direct supervision of Dr. Calvillo. The risks and benefits of the procedure were explained to the patient and informed consent was obtained. The left pleural effusion was localized using ultrasound guidance. The skin was prepped and draped in a sterile fashion. 1% lidocaine was used as a local anesthetic. An 8 [place] multi-side hole catheter was inserted using Trocar technique. 840 mL of yellow fluid was withdrawn and sent to the lab for analysis. The patient tolerated the procedure well and there were no immediate complications. Reviewed by DANNI Almanzar 03/20/2017 03:19 PEdited and Signed by Aditya Calvillo MD 03/20/2017 04:48 P
[2017-03-19 09:00] VITALS: O2SAT 98
[2017-03-19 09:16] VITALS: BP 113/74
[2017-03-19 10:09] LABS: ANION GAP 9 MEQ/L (8-16); BLOOD UREA NITROGEN 11 MG/DL (7-18); CARBON DIOXIDE LEVEL 31 MEQ/L (21-32); CHLORIDE LEVEL 84 MEQ/L (98-107); CREATININE FOR GFR 0.46 MG/DL (0.55-1.02); GLOMERULAR FILTRATION RATE > 60.0 (>45); GLUCOSE, FASTING 128 MG/DL (80-110); POTASSIUM SERUM 3.9 MEQ/L (3.5-5.1); SODIUM LEVEL 124 MEQ/L (136-145)
[2017-03-19] MEDS: BUDESONIDE EC 3 MG CAP (ENTOCORT EC) PO SCH (10:38)
[2017-03-19] MEDS: FAMOTIDINE 20 MG TAB PO SCH ×2 (10:41→21:00)
[2017-03-19] MEDS: ASPIRIN 81 MG ENTERIC TAB PO SCH (10:43)
[2017-03-19] MEDS: amLODIPine 5 MG TAB PO SCH (10:43)
[2017-03-19] MEDS: VITAMIN D 1,000 INTERNATIONAL UNITS TABLET PO SCH (10:44)
[2017-03-19] MEDS: CARVedilol 12.5 MG TAB PO SCH ×2 (10:44→21:42)
[2017-03-19] MEDS: FOLIC ACID 1 MG TAB PO SCH (10:45)
[2017-03-19] MEDS: MULTIVITAMINS/MINERALS THERAP 1 TAB PO SCH ×2 (10:45→10:58)
[2017-03-19] MEDS: THIAMINE 100 MG TAB PO SCH (10:46)
[2017-03-19] MEDS: POTASSIUM CHLORIDE 10 MEQ SR TABLET PO SCH (10:47)
[2017-03-19] MEDS: NICOTINE 7 MG/24 HR TRANSDERMAL TD SCH (10:49)
[2017-03-19] MEDS: DOCUSATE SODIUM 100 MG CAP PO SCH ×2 (10:50→21:42)
[2017-03-19] MEDS: SODIUM CHLORIDE 1 GM TAB PO SCH ×2 (10:50→21:42)
--- NOTE | 2017-03-19 10:58 | IPNPDOC ---
Subjective Date Seen The patient was seen on 03/19/17. Subjective Chief Complaint/HPI The patient is a 66-year-old female admitted with a reason for visit of Malignant Hyponatremia And Low Sodium. Events since last encounter Patient was seen this morning at bedside. According to the nurse from yesterday , it appears that 3 sodium chloride tablet pills were found in the garbage. Patient states that she didn't throw them away. She also states that these pills are more harsh to take because they are tablets and the ones she have at home are capsules. Sodium level is improved. She denies any lightheadedness or dizziness. No chest pain/pressure, SOB, nausea, vomiting, abd pain or diarrhea. No fevers or chills and vitals are stable. Objective Physical Examination General Exam: Positive: Alert, Cooperative, No Acute Distress Eye Exam: Positive: Conjunctiva & lids normal, EOMI, Negative: Sclera icteric ENT Exam: Positive: Atraumatic, Mucous membr. moist/pink, Pharynx Normal Neck Exam: Positive: Supple, Negative: thyromegaly Chest Exam: Positive: Diminished (diminished more on the left) Heart Exam: Positive: Rate Normal, Regular Rhythm, Normal S1, Normal S2, Negative: Murmurs Abdomen Exam: Positive: Normal bowel sounds, Soft, Other (large ecchymoses on left lower flank area), Negative: Tenderness Extremity Exam: Positive: Normal pulses, Negative: Cyanosis, Edema, Tenderness Skin Exam: Positive: Nl turgor and temperature, Negative: Rash Neuro Exam: Positive: Normal Speech, Cranial Nerves 3-12 NL Psych Exam: Positive: Oriented x 3 Assessment /Plan Problems (1) Hyponatremia Status: Acute Problem Specific Plan: Consult Specialist Problem Text: * Secondary to SIADH * Nephrology following * Placed on a 1000ml fluid restriction * Given a total of 3 doses of Samsca. 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 * Also has a focal lesion on liver, hemangioma vs solid nodule (3) Small cell carcinoma Problem Text: * Will obtain further imaging for staging * Brain MRI done on 03/18. Only one view of MRI was able to be obtained because patient could not lay flat and she is refusing bone scan today because she states that she cannot lay flat for it even though she had thoracentesis yesterday * Abd/pelvis CT revealed ill defined lesions in the liver, too small to characterized. Left lobe lesion could possibly be a hemangioma * She was seen by Dr. Levy on 03/15, recommending palliative chemo * Will likely start chemo pending hospital discharge. Was scheduled for today 03/19, but we would like sodium levels to improved further (4) Pleural effusion Problem Text: * Had moderate left sided effusion seen on imaging * Had therapeutic thoracentesis on 03/18 where 840ml of fluid was removed * Fluid looks more transudative based on Lytes criteria, cultures pending (5) CHF (congestive heart failure) Status: Chronic Problem Text: * Appears stable * Echo on 03/13 revealed grade 1 diastolic dysfunction, LVEF of 70%, small pericardial effusion, moderate elevation of pulmonary artery systolic pressure * Effusion, left greater than right and slight pericardial effusion seen on CT on 03/13 (6) Chronic respiratory failure with hypoxia Problem Text: * Requiring supplemental O2 * Has history of being on O2 at home, script provided for O2 concentrator * Has chronic SOB from COPD (7) Hypertension Status: Chronic Problem Text: * Blood pressure stable * Currently on Norvasc and Coreg (8) COPD (chronic obstructive pulmonary disease) Status: Chronic Problem Text: * Patient is on supplemental O2, titrate to 88-92% * Monitor respiratory status * DuoNeb breathing treatments as needed, continue Spiriva (9) Alcohol abuse Status: Chronic Problem Text: * Liver ultrasound on 03/13 revealed 2 cysts in the liver, 2 focal hyperechoic nodular areas which could represent hemangioma or solid nodules, no reported cirrhosis * Continue with thiamine, folic acid and multivitamins daily * Counseled on alcohol abuse. Encouraged cessation. (10) Irritable bowel syndrome Status: Chronic Problem Text: * Takes budesonide for chronic diarrhea (11) Cigarette smoker Problem Text: * Reports that she has smoked 2 packs a day for at least 50 years. * Continue with nicotine patch * Counseled on smoking cessation Plan/VTE VTE Prophylaxis Ordered?: Yes (teds and sequentials) VS, I&O, 24H, Fishbone Vital Signs/I&O Vital Signs Date Time Temp Pulse Resp B/P (MAP) Pulse Ox O2 Delivery O2 Flow Rate FiO2 03/19/17 09:16 98.1 102 18 113/74 (87) 96 Nasal Cannula 4.0 03/14/17 19:45 50 I&O- Last 24 Hours up to 6 AM 03/19/17 06:00 Intake Total 360 ml Output Total 525 ml Balance -165 ml Laboratory Data CBC/BMP Laboratory Tests 03/18/17 13:16 Calcium Level 8.0 L 03/18/17 17:00 Calcium Level 7.7 L 03/18/17 20:47 Calcium Level 8.4 L 03/19/17 01:09 Calcium Level 7.9 L 03/19/17 05:19 Red Blood Count 2.78 L, Mean Corpuscular Volume 100.4 H, Mean Corpuscular Hemoglobin 36.3 H, Mean Corpuscular Hemoglobin Concent 36.2, Red Cell Distribution Width 14.1, Calcium Level 7.9 L, Aspartate Amino Transf (AST/SGOT) 36, Alanine Aminotransferase (ALT/SGPT) 30, Alkaline Phosphatase 75, Total Bilirubin 1.3 H, Total Protein 5.5 L, Albumin 2.7 L 03/19/17 09:33 Calcium Level 8.0 L Microbiology Microbiology 03/18/17 Acid Fast Stain, Received Pending 03/18/17 Mycobacterial Culture, Received Pending 03/18/17 Fungal Smear, Received Pending 03/18/17 Fungal Culture, Received Pending 03/18/17 Gram Stain - Final, Resulted 03/18/17 Anaerobic Culture, Resulted Pending 03/18/17 Body Fluid Culture, Received Pending GME ATTESTATION GME ATTESTATION My preceptor for this patient encounter was physically present in the building during the encounter and was fully available. As needed, all aspects of the patient interview, examination, medical decision making process, and medical care plan development were reviewed and approved by the preceptor. Preceptor is aware and concurs with the plan as stated in the body of this note and will attest to such by his/her cosignature. ALDO ALVES DO March 19, 2017 10:58
[2017-03-19] MEDS ORDERED: TOLVAPTAN 15 MG TAB (SAMSCA) PO ONE (12:45)
[2017-03-19 15:46] LABS: ANION GAP 7 MEQ/L (8-16); BLOOD UREA NITROGEN 10 MG/DL (7-18); CALCIUM LEVEL 8.3 MG/DL (8.8-10.2); CARBON DIOXIDE LEVEL 31 MEQ/L (21-32); CHLORIDE LEVEL 87 MEQ/L (98-107); CREATININE FOR GFR 0.45 MG/DL (0.55-1.02); GLOMERULAR FILTRATION RATE > 60.0 (>45); GLUCOSE, FASTING 147 MG/DL (80-110)
[2017-03-19 16:10] LABS: POTASSIUM SERUM 4.6 MEQ/L (3.5-5.1); SODIUM LEVEL 125 MEQ/L (136-145)
--- NOTE | 2017-03-19 20:54 | IPN ---
DATE: 03/19/2017 Ms. Jones is seen this morning on her bedside. 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 Yesterday late afternoon I was called by nursing staff to report that the patient had been throwing away her pills in the trash can in her room which were discovered by nursing staff yesterday. She was advised to take her pills in order to get better. Nursing staff reported that they offered her to take her pills in applesauce which did help her. PHYSICAL EXAMINATION: Temperature is 98 degrees Fahrenheit, heart rate 102 per minute and respiratory rate 18 per minute. Blood pressure 113/74 mmHg and oxygen saturation 96% on 4 liters oxygen. Her head is atraumatic. Neck is supple and without jugular venous distention (JVD) or thyroid enlargement. Oral mucosa is without any thrush or ulcers. Heart sounds are tachycardiac. Lungs with diminished breath sounds in left lower half. Abdomen soft and nontender. Bowel sounds are normal. Extremities have no cyanosis or clubbing. Skin has no rash or ulcers. Neurologically she is awake, alert and oriented times three. Today's labs show WBC count 8.0, hemoglobin 10.1 and hematocrit 27.9. Sodium 124 and potassium 3.9. BUN is 11 and creatinine 0.46. PROBLEMS: 1. Hyponatremia related to syndrome of inappropriate antidiuretic hormone secretion (SIADH). Sodium level has now started to improve as the patient is taking her medications since last evening. Prior to that apparently she was throwing away her pills in the trash can in her room. She was also given Samsca which did help and we will give her one more dose of Samsca today and continue to monitor her electrolytes. The patient is also being advised to eat regular food with high sodium content. She will remain on fluid restriction of 1500 mL per day. 2. Small-cell lung cancer. The patient is waiting for discharge to start her chemotherapy as an outpatient. At present, she was not felt to be stable for discharge due to severe hyponatremia which has started to improve. We will recheck her electrolytes tomorrow and then reconsider discharge plans.
[2017-03-19 21:21] LABS: ANION GAP 7 MEQ/L (8-16); BLOOD UREA NITROGEN 10 MG/DL (7-18); CALCIUM LEVEL 8.5 MG/DL (8.8-10.2); CARBON DIOXIDE LEVEL 30 MEQ/L (21-32); CHLORIDE LEVEL 90 MEQ/L (98-107); CREATININE FOR GFR 0.55 MG/DL (0.55-1.02); GLOMERULAR FILTRATION RATE > 60.0 (>45); GLUCOSE, FASTING 142 MG/DL (80-110); POTASSIUM SERUM 4.7 MEQ/L (3.5-5.1); SODIUM LEVEL 127 MEQ/L (136-145)
[2017-03-19] MEDS: SIMVASTATIN 10 MG TAB PO SCH (21:42)
[2017-03-19 22:00] VITALS: BP 104/60
[2017-03-20] MEDS: ALPRAZolam 0.25 MG TAB PO PRN ×2 (03:09→21:05)
[2017-03-20] MEDS: IPRATROPIUM 0.5MG/ALBUTEROL 2.5MG INH SOL UD 3ML (DUONEB)(J7620) NEB SCH ×7 (04:00→22:32)
[2017-03-20] MEDS: SLF 3 ML SYR IV SCH ×3 (05:39→21:04)
[2017-03-20 05:49] LABS: ANION GAP 7 MEQ/L (8-16); BLOOD UREA NITROGEN 9 MG/DL (7-18); CALCIUM LEVEL 8.2 MG/DL (8.8-10.2); CARBON DIOXIDE LEVEL 30 MEQ/L (21-32); CHLORIDE LEVEL 93 MEQ/L (98-107); GLOMERULAR FILTRATION RATE > 60.0 (>45); GLUCOSE, FASTING 104 MG/DL (80-110); POTASSIUM SERUM 4.5 MEQ/L (3.5-5.1); SODIUM LEVEL 130 MEQ/L (136-145)
[2017-03-20 06:00] VITALS: BP 100/59
[2017-03-20] MEDS: TIOTROPIUM INHALER/CAPSULE (SPIRIVA) INH SCH (07:26)
[2017-03-20] MEDS: amLODIPine 5 MG TAB PO SCH (09:00)
[2017-03-20] MEDS: FAMOTIDINE 20 MG TAB PO SCH ×2 (09:00→21:00)
[2017-03-20] MEDS: DOCUSATE SODIUM 100 MG CAP PO SCH ×2 (09:00→21:00)
[2017-03-20] MEDS: BUDESONIDE EC 3 MG CAP (ENTOCORT EC) PO SCH (09:04)
[2017-03-20] MEDS: SODIUM CHLORIDE 1 GM TAB PO SCH ×2 (09:04→21:00)
[2017-03-20] MEDS: NICOTINE 7 MG/24 HR TRANSDERMAL TD SCH (09:04)
[2017-03-20] MEDS: VITAMIN D 1,000 INTERNATIONAL UNITS TABLET PO SCH (09:05)
[2017-03-20] MEDS: ASPIRIN 81 MG ENTERIC TAB PO SCH (09:05)
[2017-03-20] MEDS: POTASSIUM CHLORIDE 10 MEQ SR TABLET PO SCH (09:06)
[2017-03-20] MEDS: MULTIVITAMINS/MINERALS THERAP 1 TAB PO SCH (09:06)
[2017-03-20] MEDS: THIAMINE 100 MG TAB PO SCH (09:08)
[2017-03-20] MEDS: FOLIC ACID 1 MG TAB PO SCH (09:08)
[2017-03-20] MEDS: CARVedilol 12.5 MG TAB PO SCH ×2 (09:08→21:04)
[2017-03-20 10:09] LABS: ANION GAP 7 MEQ/L (8-16); BLOOD UREA NITROGEN 9 MG/DL (7-18); CALCIUM LEVEL 8.4 MG/DL (8.8-10.2); CARBON DIOXIDE LEVEL 32 MEQ/L (21-32); CHLORIDE LEVEL 90 MEQ/L (98-107); CREATININE FOR GFR 0.56 MG/DL (0.55-1.02); GLOMERULAR FILTRATION RATE > 60.0 (>45); GLUCOSE, FASTING 154 MG/DL (80-110); POTASSIUM SERUM 4.4 MEQ/L (3.5-5.1); SODIUM LEVEL 129 MEQ/L (136-145)
[2017-03-20 14:00] VITALS: BP 100/60
--- NOTE | 2017-03-20 15:03 | IPNPDOC ---
Subjective Date Seen The patient was seen on 03/20/17. Subjective Chief Complaint/HPI The patient is a 66-year-old female admitted with a reason for visit of Malignant Hyponatremia And Low Sodium. Constitutional: Denies: Chills, Fever, Night Sweats Gastrointestinal: Denies: Nausea, Vomiting, Abdominal Pain, Diarrhea, Constipation Genitourinary: Denies: Dysuria, Frequency, Incontinence, Retention Objective Physical Examination General Exam: Positive: Alert, Cooperative, No Acute Distress Eye Exam: Positive: Conjunctiva & lids normal, EOMI, Negative: Sclera icteric ENT Exam: Positive: Atraumatic, Mucous membr. moist/pink, Pharynx Normal Neck Exam: Positive: Supple, Negative: thyromegaly Chest Exam: Positive: Diminished (diminished more on the left) Heart Exam: Positive: Rate Normal, Regular Rhythm, Normal S1, Normal S2, Negative: Murmurs Abdomen Exam: Positive: Normal bowel sounds, Soft, Other (large ecchymoses on left lower flank area), Negative: Tenderness Extremity Exam: Positive: Normal pulses, Negative: Cyanosis, Edema, Tenderness Skin Exam: Positive: Nl turgor and temperature, Negative: Rash Neuro Exam: Positive: Normal Speech, Cranial Nerves 3-12 NL Psych Exam: Positive: Oriented x 3 Assessment /Plan Problems (1) Hyponatremia Status: Acute Response to Treatment: Improving Problem Specific Plan: Consult Specialist Problem Text: * Secondary to SIADH * Nephrology following * Placed on a 1000ml fluid restriction * Given Samsca. 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 * Also has a focal lesion on liver, hemangioma vs solid nodule (3) Small cell carcinoma Problem Text: * Brain MRI done on 03/18. Only one view of MRI was able to be obtained because patient could not lay flat and she is refusing bone scan today because she states that she cannot lay flat for it even though she had thoracentesis yesterday * Abd/pelvis CT revealed ill defined lesions in the liver, too small to characterized. Left lobe lesion could possibly be a hemangioma * She was seen by Dr. Levy on 03/15, recommending palliative chemo * Will likely start chemo pending hospital discharge. Was scheduled for today 03/19, can f/u with dr levy on discharge, * pt is requesting to go somewhere closer to home for chemo, [place] away [place] hospital (4) Pleural effusion Problem Text: * Had moderate left sided effusion seen on imaging * Had therapeutic thoracentesis on 03/18 where 840ml of fluid was removed * Fluid looks more transudative based on Lytes criteria, cultures pending (5) CHF (congestive heart failure) Status: Chronic Problem Text: * Appears stable * Echo on 03/13 revealed grade 1 diastolic dysfunction, LVEF of 70%, small pericardial effusion, moderate elevation of pulmonary artery systolic pressure * Effusion, left greater than right and slight pericardial effusion seen on CT on 03/13 (6) Chronic respiratory failure with hypoxia Problem Text: * Requiring supplemental O2 * Has history of being on O2 at home, script provided for O2 concentrator * Has chronic SOB from COPD (7) Hypertension Status: Chronic Problem Text: * Blood pressure stable * Currently on Norvasc and Coreg (8) COPD (chronic obstructive pulmonary disease) Status: Chronic Problem Text: * Patient is on supplemental O2, titrate to 88-92% * Monitor respiratory status * DuoNeb breathing treatments as needed, continue Spiriva (9) Alcohol abuse Status: Chronic Problem Text: * Liver ultrasound on 03/13 revealed 2 cysts in the liver, 2 focal hyperechoic nodular areas which could represent hemangioma or solid nodules, no reported cirrhosis * Continue with thiamine, folic acid and multivitamins daily * Counseled on alcohol abuse. Encouraged cessation. (10) Irritable bowel syndrome Status: Chronic Problem Text: * Takes budesonide for chronic diarrhea (11) Cigarette smoker Problem Text: * Reports that she has smoked 2 packs a day for at least 50 years. * Continue with nicotine patch * Counseled on smoking cessation Plan/VTE VTE Prophylaxis Ordered?: Yes (teds and sequentials) VS, I&O, 24H, Fishbone Vital Signs/I&O Vital Signs Date Time Temp Pulse Resp B/P (MAP) Pulse Ox O2 Delivery O2 Flow Rate FiO2 03/20/17 09:08 97 100/59 03/20/17 06:00 97.7 16 100 Nasal Cannula 4.0 03/14/17 19:45 50 I&O- Last 24 Hours up to 6 AM 03/20/17 06:00 Intake Total 420 ml Output Total 1200 ml Balance -780 ml Laboratory Data 24H LABS Laboratory Tests 2 03/19/17 20:56: Anion Gap 7L, Glomerular Filtration Rate > 60.0, Blood Urea Nitrogen 10, Creatinine 0.55, Sodium Level 127L, Potassium Level 4.7, Chloride Level 90L, Carbon Dioxide Level 30, Calcium Level 8.5L 03/20/17 05:22: Anion Gap 7L, Glomerular Filtration Rate > 60.0, Blood Urea Nitrogen 9, Creatinine 0.40L, Sodium Level 130L, Potassium Level 4.5, Chloride Level 93L, Carbon Dioxide Level 30, Calcium Level 8.2L 03/20/17 09:23: Anion Gap 7L, Glomerular Filtration Rate > 60.0, Blood Urea Nitrogen 9, Creatinine 0.56, Sodium Level 129L, Potassium Level 4.4, Chloride Level 90L, Carbon Dioxide Level 32, Calcium Level 8.4L CBC/BMP Laboratory Tests 03/19/17 20:56 Calcium Level 8.5 L 03/20/17 05:22 Calcium Level 8.2 L 03/20/17 09:23 Calcium Level 8.4 L Microbiology Microbiology 03/18/17 Acid Fast Stain - Final, Resulted 03/18/17 Mycobacterial Culture, Resulted Pending 03/18/17 Fungal Smear - Final, Resulted 03/18/17 Fungal Culture, Resulted Pending 03/18/17 Gram Stain - Final, Complete 03/18/17 Anaerobic Culture - Final, Complete 03/18/17 Body Fluid Culture - Final, Complete ANNA PAZ DO March 20, 2017 15:03
[2017-03-20 18:57] LABS: ANION GAP 5 MEQ/L (8-16); BLOOD UREA NITROGEN 13 MG/DL (7-18); CALCIUM LEVEL 8.7 MG/DL (8.8-10.2); CARBON DIOXIDE LEVEL 31 MEQ/L (21-32); CHLORIDE LEVEL 96 MEQ/L (98-107); CREATININE FOR GFR 0.78 MG/DL (0.55-1.02); GLOMERULAR FILTRATION RATE > 60.0 (>45); GLUCOSE, FASTING 171 MG/DL (80-110); POTASSIUM SERUM 4.7 MEQ/L (3.5-5.1); SODIUM LEVEL 132 MEQ/L (136-145)
[2017-03-20] MEDS: SIMVASTATIN 10 MG TAB PO SCH (21:00)
[2017-03-20 22:00] VITALS: BP 84/54
[2017-03-21] MEDS: ALPRAZolam 0.25 MG TAB PO PRN ×2 (01:42→21:13)
[2017-03-21] MEDS: IPRATROPIUM 0.5MG/ALBUTEROL 2.5MG INH SOL UD 3ML (DUONEB)(J7620) NEB SCH ×6 (03:24→23:29)
[2017-03-21] MEDS: SLF 3 ML SYR IV SCH ×3 (05:47→21:17)
[2017-03-21 06:00] VITALS: BP 113/62
[2017-03-21 07:03] LABS: MEAN CORPUSCULAR HEMOGLOBIN 36.5 pg (27.0-33.0); MEAN CORPUSCULAR HGB CONC 34.4 g/dl (32.0-36.5); RED CELL DISTRIBUTION WIDTH 13.9 % (11.5-14.5); WHITE BLOOD COUNT 7.9 K/mm3 (4.0-10.0)
[2017-03-21 07:28] LABS: ANION GAP 8 MEQ/L (8-16); BLOOD UREA NITROGEN 13 MG/DL (7-18); CALCIUM LEVEL 8.5 MG/DL (8.8-10.2); CARBON DIOXIDE LEVEL 30 MEQ/L (21-32); CHLORIDE LEVEL 96 MEQ/L (98-107); CREATININE FOR GFR 0.44 MG/DL (0.55-1.02); GLOMERULAR FILTRATION RATE > 60.0 (>45); GLUCOSE, FASTING 115 MG/DL (80-110); POTASSIUM SERUM 4.2 MEQ/L (3.5-5.1); SODIUM LEVEL 134 MEQ/L (136-145)
[2017-03-21] MEDS: TIOTROPIUM INHALER/CAPSULE (SPIRIVA) INH SCH (08:52)
[2017-03-21] MEDS: amLODIPine 5 MG TAB PO SCH (09:00)
[2017-03-21] MEDS: CARVedilol 12.5 MG TAB PO SCH ×2 (09:00→21:16)
[2017-03-21] MEDS: DOCUSATE SODIUM 100 MG CAP PO SCH ×2 (09:00→21:14)
[2017-03-21] MEDS: MULTIVITAMINS/MINERALS THERAP 1 TAB PO SCH (09:00)
[2017-03-21] MEDS: NICOTINE 7 MG/24 HR TRANSDERMAL TD SCH (09:43)
[2017-03-21] MEDS: POTASSIUM CHLORIDE 10 MEQ SR TABLET PO SCH (09:44)
[2017-03-21] MEDS: SODIUM CHLORIDE 1 GM TAB PO SCH ×2 (09:44→21:14)
[2017-03-21] MEDS: FAMOTIDINE 20 MG TAB PO SCH ×2 (09:44→21:13)
[2017-03-21] MEDS: ASPIRIN 81 MG ENTERIC TAB PO SCH (09:45)
[2017-03-21] MEDS: VITAMIN D 1,000 INTERNATIONAL UNITS TABLET PO SCH (09:47)
[2017-03-21] MEDS: FOLIC ACID 1 MG TAB PO SCH (09:47)
[2017-03-21] MEDS: BUDESONIDE EC 3 MG CAP (ENTOCORT EC) PO SCH (09:47)
[2017-03-21] MEDS: THIAMINE 100 MG TAB PO SCH (09:47)
[2017-03-21 14:39] VITALS: O2SAT 95
--- NOTE | 2017-03-21 18:14 | IPN ---
DATE: 03/21/2017 Ms. Jones is seen this morning on her bedside. She is quite frustrated with her situation and her family is insistent that she should go to care home for rehabilitation. Her family feels that the patient is not physically ready for discharge to home. The patient denies any nausea, vomiting, fever or chills. She remains short of breath and continues to use oxygen. She has also told me about her conversation with her family and she has decided not to pursue chemotherapy. PHYSICAL EXAMINATION: Temperature 97 degrees Fahrenheit, heart rate 96 per minute and respiratory rate 16 per minute. Blood pressure 113/62 mmHg and oxygen saturation 99% on 4 liters oxygen. Head is atraumatic. Ears, nose and throat are unremarkable. Neck is supple and without jugular venous distention (JVD) or thyroid enlargement. Heart sounds are somewhat tachycardiac but regular. Lungs have moderate bilateral air entry. There is no wheezing or rales at present. Abdomen soft and nontender. Extremities without cyanosis or clubbing. Skin without any rash or ulcers. Neurologically she is awake, alert and oriented times three. Today's labs show WBC count 7.9, hemoglobin 9.4 and hematocrit 27.3. Platelets 365. Sodium 134 and potassium 4.2. BUN 13 and creatinine 0.44. Glucose 115 and calcium 8.5. PROBLEMS: 1. Hyponatremia most likely related to syndrome of inappropriate secretion of antidiuretic hormone (SIADH) caused by small-cell lung cancer. With fluid restriction and sodium chloride supplement her sodium level has improved. She was also given few doses of Samsca, however no dose was given during last 24 hours. At present she is off diuretics and I would like to keep her off diuretics due to risk of dehydration. 2. Small-cell lung cancer. The patient has decided not to pursue chemotherapy. I feel that the patient is at high risk for chemotherapy anyway. She can be discharged to care home for comfort care. The patient does not wish to go to [facility] here in [place] as it is far from her home. 3. Anemia. Her anemia is stable and at this point no intervention is indicated. DISPOSITION: From a renal standpoint, the patient is stable for discharge to home today. I have discussed this with the nursing staff.
[2017-03-21] MEDS: SIMVASTATIN 10 MG TAB PO SCH (21:14)
[2017-03-21 22:00] VITALS: BP 126/64
[2017-03-22] MEDS: ALPRAZolam 0.25 MG TAB PO PRN ×3 (02:11→20:06)
[2017-03-22] MEDS: IPRATROPIUM 0.5MG/ALBUTEROL 2.5MG INH SOL UD 3ML (DUONEB)(J7620) NEB SCH ×6 (03:45→23:40)
[2017-03-22] MEDS: SLF 3 ML SYR IV SCH ×3 (05:18→21:52)
[2017-03-22 06:00] VITALS: BP 119/70
[2017-03-22 06:55] LABS: MEAN CORPUSCULAR HEMOGLOBIN 35.8 pg (27.0-33.0); MEAN CORPUSCULAR HGB CONC 34.3 g/dl (32.0-36.5); MEAN CORPUSCULAR VOLUME 104.6 fl (80.0-96.0); RED CELL DISTRIBUTION WIDTH 14.2 % (11.5-14.5); WHITE BLOOD COUNT 7.3 K/mm3 (4.0-10.0)
[2017-03-22 07:14] LABS: ANION GAP 8 MEQ/L (8-16); BLOOD UREA NITROGEN 15 MG/DL (7-18); CALCIUM LEVEL 8.5 MG/DL (8.8-10.2); CARBON DIOXIDE LEVEL 29 MEQ/L (21-32); CHLORIDE LEVEL 98 MEQ/L (98-107); CREATININE FOR GFR 0.51 MG/DL (0.55-1.02); GLOMERULAR FILTRATION RATE > 60.0 (>45); GLUCOSE, FASTING 102 MG/DL (80-110); POTASSIUM SERUM 4.3 MEQ/L (3.5-5.1); SODIUM LEVEL 135 MEQ/L (136-145)
[2017-03-22] MEDS: TIOTROPIUM INHALER/CAPSULE (SPIRIVA) INH SCH (08:21)
[2017-03-22] MEDS: VITAMIN D 1,000 INTERNATIONAL UNITS TABLET PO SCH (09:00)
[2017-03-22] MEDS: NICOTINE 7 MG/24 HR TRANSDERMAL TD SCH (09:00)
[2017-03-22] MEDS: DOCUSATE SODIUM 100 MG CAP PO SCH ×2 (09:00→21:50)
[2017-03-22] MEDS: SODIUM CHLORIDE 1 GM TAB PO SCH ×2 (09:00→21:50)
[2017-03-22] MEDS: THIAMINE 100 MG TAB PO SCH (09:00)
[2017-03-22] MEDS: FAMOTIDINE 20 MG TAB PO SCH ×2 (09:00→21:50)
[2017-03-22] MEDS: FOLIC ACID 1 MG TAB PO SCH (09:00)
[2017-03-22] MEDS: MULTIVITAMINS/MINERALS THERAP 1 TAB PO SCH (09:00)
[2017-03-22] MEDS: CARVedilol 12.5 MG TAB PO SCH ×2 (09:00→21:51)
[2017-03-22] MEDS: POTASSIUM CHLORIDE 10 MEQ SR TABLET PO SCH ×2 (09:37→10:21)
[2017-03-22] MEDS: BUDESONIDE EC 3 MG CAP (ENTOCORT EC) PO SCH (09:38)
[2017-03-22] MEDS: amLODIPine 5 MG TAB PO SCH ×2 (09:46→10:20)
[2017-03-22] MEDS: ASPIRIN 81 MG ENTERIC TAB PO SCH (10:22)
--- NOTE | 2017-03-22 11:45 | IPNPDOC ---
Subjective Date Seen The patient was seen on 03/22/17. Subjective Chief Complaint/HPI The patient is a 66-year-old female admitted with a reason for visit of Malignant Hyponatremia And Low Sodium. Constitutional: Denies: Chills, Fever, Night Sweats Pulmonary: Reports: Dyspnea, Cough Objective Physical Examination General Exam: Positive: Alert, Cooperative, No Acute Distress Eye Exam: Positive: Conjunctiva & lids normal, EOMI, Negative: Sclera icteric ENT Exam: Positive: Atraumatic, Mucous membr. moist/pink, Pharynx Normal Neck Exam: Positive: Supple, Negative: thyromegaly Chest Exam: Positive: Diminished (diminished more on the left) Heart Exam: Positive: Rate Normal, Regular Rhythm, Normal S1, Normal S2, Negative: Murmurs Abdomen Exam: Positive: Normal bowel sounds, Soft, Other (large ecchymoses on left lower flank area), Negative: Tenderness Extremity Exam: Positive: Normal pulses, Negative: Cyanosis, Edema, Tenderness Skin Exam: Positive: Nl turgor and temperature, Negative: Rash Neuro Exam: Positive: Normal Speech, Cranial Nerves 3-12 NL Psych Exam: Positive: Oriented x 3 Assessment /Plan Problems (1) Hyponatremia Status: Resolved Response to Treatment: Improving Problem Specific Plan: Consult Specialist Problem Text: * Secondary to SIADH * Nephrology following * Placed on a 1000ml fluid restriction * Given Samsca initially Also on sodium chloride tablets twice daily * Continue to monitor sodium levels, currently 135 (2) Pulmonary nodules/lesions, multiple Problem Text: * Patient had numerous pulm nodules on chest CT, some of which are spiculated with massive adenopathy * Status post bronchoscopy with ultrasound-guided biopsy on 03/14 * 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 * Also has a focal lesion on liver, hemangioma vs solid nodule * pt doesn't want to go to oncology * will be going to rehab (3) Small cell carcinoma Problem Text: * Brain MRI done on 03/18. Only one view of MRI was able to be obtained because patient could not lay flat and she is refusing bone scan today because she states that she cannot lay flat for it even though she had thoracentesis yesterday * Abd/pelvis CT revealed ill defined lesions in the liver, too small to characterized. Left lobe lesion could possibly be a hemangioma * pt wants to go to rehab doesn't want chemo and doesn't want to follow up with oncology * spoke with daughter she is aware of the plan (4) Pleural effusion Problem Text: * Had moderate left sided effusion seen on imaging * Had therapeutic thoracentesis on 03/18 where 840ml of fluid was removed (5) CHF (congestive heart failure) Status: Chronic Problem Text: * Appears stable * Echo on 03/13 revealed grade 1 diastolic dysfunction, LVEF of 70%, small pericardial effusion, moderate elevation of pulmonary artery systolic pressure (6) Chronic respiratory failure with hypoxia Problem Text: * Requiring supplemental O2 * Has history of being on O2 at home, script provided for O2 concentrator * Has chronic SOB from COPD (7) Hypertension Status: Chronic Problem Text: * Blood pressure stable * Currently on Norvasc and Coreg (8) COPD (chronic obstructive pulmonary disease) Status: Chronic Problem Text: * Patient is on supplemental O2, titrate to 88-92% * Monitor respiratory status * DuoNeb breathing treatments as needed, continue Spiriva (9) Alcohol abuse Status: Chronic Problem Text: * Liver ultrasound on 03/13 revealed 2 cysts in the liver, 2 focal hyperechoic nodular areas which could represent hemangioma or solid nodules, no reported cirrhosis * Continue with thiamine, folic acid and multivitamins daily * Counseled on alcohol abuse. Encouraged cessation. (10) Irritable bowel syndrome Status: Chronic Problem Text: * Takes budesonide for chronic diarrhea (11) Cigarette smoker Problem Text: * Reports that she has smoked 2 packs a day for at least 50 years. * Continue with nicotine patch * Counseled on smoking cessation Plan/VTE VTE Prophylaxis Ordered?: Yes (teds and sequentials) VS, I&O, 24H, [facility] Vital Signs/I&O Vital Signs Date Time Temp Pulse Resp B/P (MAP) Pulse Ox O2 Delivery O2 Flow Rate FiO2 03/22/17 10:20 88 119/70 03/22/17 06:00 98.8 17 94 Nasal Cannula 4.0 I&O- Last 24 Hours up to 6 AM 03/22/17 05:59 Intake Total 240 ml Output Total 500 ml Balance -260 ml Laboratory Data 24H LABS Laboratory Tests 2 03/22/17 06:36: Anion Gap 8, Glomerular Filtration Rate > 60.0, Blood Urea Nitrogen 15, Creatinine 0.51L, Sodium Level 135L, Potassium Level 4.3, Chloride Level 98, Carbon Dioxide Level 29, Calcium Level 8.5L CBC/BMP Laboratory Tests 03/22/17 06:36 Red Blood Count 2.73 L, Mean Corpuscular Volume 104.6 H, Mean Corpuscular Hemoglobin 35.8 H, Mean Corpuscular Hemoglobin Concent 34.3, Red Cell Distribution Width 14.2, Calcium Level 8.5 L Microbiology Microbiology 03/18/17 Acid Fast Stain - Final, Resulted 03/18/17 Mycobacterial Culture, Resulted Pending 03/18/17 Fungal Smear - Final, Resulted 03/18/17 Fungal Culture, Resulted Pending 03/18/17 Gram Stain - Final, Complete 03/18/17 Anaerobic Culture - Final, Complete 03/18/17 Body Fluid Culture - Final, Complete ANNA PAZ DO March 22, 2017 11:45
[2017-03-22] MEDS: SIMVASTATIN 10 MG TAB PO SCH (21:52)
[2017-03-22 22:00] VITALS: BP 145/77
[2017-03-23] MEDS: IPRATROPIUM 0.5MG/ALBUTEROL 2.5MG INH SOL UD 3ML (DUONEB)(J7620) NEB SCH ×6 (02:39→23:52)
[2017-03-23 06:00] VITALS: BP 124/69
[2017-03-23] MEDS: SLF 3 ML SYR IV SCH (06:19)
[2017-03-23 06:37] LABS: MEAN CORPUSCULAR HEMOGLOBIN 36.4 pg (27.0-33.0); MEAN CORPUSCULAR HGB CONC 34.7 g/dl (32.0-36.5); MEAN CORPUSCULAR VOLUME 104.8 fl (80.0-96.0); RED CELL DISTRIBUTION WIDTH 14.2 % (11.5-14.5); WHITE BLOOD COUNT 9.8 K/mm3 (4.0-10.0)
[2017-03-23 07:04] LABS: ANION GAP 11 MEQ/L (8-16); BLOOD UREA NITROGEN 20 MG/DL (7-18); CALCIUM LEVEL 8.8 MG/DL (8.8-10.2); CARBON DIOXIDE LEVEL 27 MEQ/L (21-32); CHLORIDE LEVEL 99 MEQ/L (98-107); CREATININE FOR GFR 0.44 MG/DL (0.55-1.02); GLOMERULAR FILTRATION RATE > 60.0 (>45); GLUCOSE, FASTING 109 MG/DL (80-110); POTASSIUM SERUM 4.4 MEQ/L (3.5-5.1); SODIUM LEVEL 137 MEQ/L (136-145)
[2017-03-23] MEDS: TIOTROPIUM INHALER/CAPSULE (SPIRIVA) INH SCH (08:20)
[2017-03-23] MEDS: MULTIVITAMINS/MINERALS THERAP 1 TAB PO SCH (09:00)
[2017-03-23] MEDS: VITAMIN D 1,000 INTERNATIONAL UNITS TABLET PO SCH (09:19)
[2017-03-23] MEDS: ASPIRIN 81 MG ENTERIC TAB PO SCH (09:19)
[2017-03-23] MEDS: FAMOTIDINE 20 MG TAB PO SCH ×2 (09:19→21:22)
[2017-03-23] MEDS: CARVedilol 12.5 MG TAB PO SCH ×2 (09:20→21:26)
[2017-03-23] MEDS: THIAMINE 100 MG TAB PO SCH (09:20)
[2017-03-23] MEDS: FOLIC ACID 1 MG TAB PO SCH (09:21)
[2017-03-23] MEDS: DOCUSATE SODIUM 100 MG CAP PO SCH ×2 (09:21→21:22)
[2017-03-23] MEDS: NICOTINE 7 MG/24 HR TRANSDERMAL TD SCH (09:22)
[2017-03-23] MEDS: BUDESONIDE EC 3 MG CAP (ENTOCORT EC) PO SCH (09:29)
[2017-03-23] MEDS: SODIUM CHLORIDE 1 GM TAB PO SCH ×2 (09:29→21:21)
[2017-03-23] MEDS: ALPRAZolam 0.25 MG TAB PO PRN ×2 (17:39→21:21)
[2017-03-23] MEDS: SIMVASTATIN 10 MG TAB PO SCH (21:22)
--- NOTE | 2017-03-23 23:02 | IPN ---
DATE: 03/22/2017 SUBJECTIVE: The patient was seen and examined at the bedside today in the morning. She continues to be in shortness of breath. The patient reports that her family has refused chemotherapy finally after discussion. Her sodium level is stable at 135 right now. The patient is pending placement at a rehabilitation center at this time. REVIEW OF SYSTEMS: The patient denies any fevers, chills, rigors, headaches, nausea, vomiting, chest pain. She does report shortness of breath, cough. She reports weakness. She denies any pain abdomen, constipation, or diarrhea. Rest of review of systems is negative. OBJECTIVE: VITAL SIGNS: Temperature is 98.8 degrees Fahrenheit, blood pressure is 119/70, pulse is 88, respiratory rate 17, saturating 94% on nasal cannula at four liters. INTAKE AND OUTPUT: Urine output recorded yesterday as 500 mL. Bed scale weight is not available. PHYSICAL EXAMINATION: GENERAL: The patient is awake, alert, oriented times three, sitting in the bed in mild respiratory distress. HEAD/NECK: Extraocular muscles intact. Pupils equal, round, and reactive to light. Mucous membranes are moist. Neck is supple. There is no jugular venous distention (JVD). CARDIOVASCULAR: S1, S2 regular rate. No murmur, rub, or gallop. RESPIRATORY: Decreased air entry at the bases. Otherwise, no rales or rhonchi. ABDOMEN: Soft. Positive bowel sounds. Nontender. No ascites. No organomegaly. EXTREMITIES: No clubbing or cyanosis. Pulses are 2+. CENTRAL NERVOUS SYSTEM (ED EDUCATIONAL AIDE): No focal neurological deficit. Power is 5/5 in all extremities. LABORATORY DATA: CBC showed a WBC of 7.3, hemoglobin 9.8, platelets of 404. BMP showed sodium 135, potassium 4.3, chloride 98, bicarbonate 29, BUN 15, creatinine 0.5, calcium 8.5. MICROBIOLOGY: No new cultures at this time. CURRENT MEDICATIONS: The patient's medications are all reviewed by me. There is no new medication at this time as compared with yesterday. The patient continues to be on sodium chloride 2 grams by mouth twice a day. 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 Nephrology service following the patient for hyponatremia. PLAN: 1. Hyponatremia. 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 The patient is stable at this time. She continues to be on salt tablet 2 grams by mouth twice a day. Continue current dose. Sodium is stable at around 135. Continue to monitor basic metabolic panel (bmp) daily. 2. Small-cell cancer of the lung. The patient has decided not to undergo chemotherapy after discussion with her family and hematology/oncology. She is pending placement at a halfway close to her home at this time. 3. Hypertension. Blood pressure is acceptable at this time. Continue current dose of amlodipine 5 mg by mouth daily, and carvedilol 12.5 mg by mouth three times a day. Avoid angiotension-converting enzyme (JENNIFER) inhibitors at this time because of hyponatremia.
--- NOTE | 2017-03-23 23:02 | IPNPDOC ---
Subjective Date Seen The patient was seen on 03/23/17. Subjective Chief Complaint/HPI The patient is a 66-year-old female admitted with a reason for visit of Malignant Hyponatremia And Low Sodium. Objective Physical Examination General Exam: Positive: Alert, Cooperative, No Acute Distress Eye Exam: Positive: Conjunctiva & lids normal, EOMI, Negative: Sclera icteric ENT Exam: Positive: Atraumatic, Mucous membr. moist/pink, Pharynx Normal Neck Exam: Positive: Supple, Negative: thyromegaly Chest Exam: Positive: Diminished (diminished more on the left) Heart Exam: Positive: Rate Normal, Regular Rhythm, Normal S1, Normal S2, Negative: Murmurs Abdomen Exam: Positive: Normal bowel sounds, Soft, Other (large ecchymoses on left lower flank area), Negative: Tenderness Extremity Exam: Positive: Normal pulses, Negative: Cyanosis, Edema, Tenderness Skin Exam: Positive: Nl turgor and temperature, Negative: Rash Neuro Exam: Positive: Normal Speech, Cranial Nerves 3-12 NL Psych Exam: Positive: Oriented x 3 Assessment /Plan Problems (1) Hyponatremia Status: Resolved Response to Treatment: Improving Problem Specific Plan: Consult Specialist Problem Text: * Secondary to SIADH * Nephrology following * Placed on a 1000ml fluid restriction * Given Samsca initially Also on sodium chloride tablets twice daily * Continue to monitor sodium levels, currently 135 (2) Pulmonary nodules/lesions, multiple Problem Text: * Patient had numerous pulm nodules on chest CT, some of which are spiculated with massive adenopathy * Status post bronchoscopy with ultrasound-guided biopsy on 03/14 * 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 * Also has a focal lesion on liver, hemangioma vs solid nodule * pt doesn't want to go to oncology * will be going to rehab (3) Small cell carcinoma Problem Text: * Brain MRI done on 03/18. Only one view of MRI was able to be obtained because patient could not lay flat and she is refusing bone scan today because she states that she cannot lay flat for it even though she had thoracentesis yesterday * Abd/pelvis CT revealed ill defined lesions in the liver, too small to characterized. Left lobe lesion could possibly be a hemangioma * pt wants to go to rehab doesn't want chemo and doesn't want to follow up with oncology * spoke with daughter she is aware of the plan (4) Pleural effusion Problem Text: * Had moderate left sided effusion seen on imaging * Had therapeutic thoracentesis on 03/18 where 840ml of fluid was removed (5) CHF (congestive heart failure) Status: Chronic Problem Text: * Appears stable * Echo on 03/13 revealed grade 1 diastolic dysfunction, LVEF of 70%, small pericardial effusion, moderate elevation of pulmonary artery systolic pressure (6) Chronic respiratory failure with hypoxia Problem Text: * Requiring supplemental O2 * Has history of being on O2 at home, script provided for O2 concentrator * Has chronic SOB from COPD (7) Hypertension Status: Chronic Problem Text: * Blood pressure stable * Currently on Norvasc and Coreg (8) COPD (chronic obstructive pulmonary disease) Status: Chronic Problem Text: * Patient is on supplemental O2, titrate to 88-92% * Monitor respiratory status * DuoNeb breathing treatments as needed, continue Spiriva (9) Alcohol abuse Status: Chronic Problem Text: * Liver ultrasound on 03/13 revealed 2 cysts in the liver, 2 focal hyperechoic nodular areas which could represent hemangioma or solid nodules, no reported cirrhosis * Continue with thiamine, folic acid and multivitamins daily * Counseled on alcohol abuse. Encouraged cessation. (10) Irritable bowel syndrome Status: Chronic Problem Text: * Takes budesonide for chronic diarrhea (11) Cigarette smoker Problem Text: * Reports that she has smoked 2 packs a day for at least 50 years. * Continue with nicotine patch * Counseled on smoking cessation Plan/VTE VTE Prophylaxis Ordered?: Yes (teds and sequentials) VS, I&O, 24H, Fishbone Vital Signs/I&O Vital Signs Date Time Temp Pulse Resp B/P (MAP) Pulse Ox O2 Delivery O2 Flow Rate FiO2 03/23/17 21:26 108 142/84 03/23/17 20:15 Nasal Cannula 3.0 03/23/17 06:00 98.3 17 91 03/22/17 08:33 50 I&O- Last 24 Hours up to 6 AM 03/23/17 06:00 Intake Total 0 ml Balance 0 ml Laboratory Data 24H LABS Laboratory Tests 2 03/23/17 05:57: Anion Gap 11, Glomerular Filtration Rate > 60.0, Blood Urea Nitrogen 20H, Creatinine 0.44L, Sodium Level 137, Potassium Level 4.4, Chloride Level 99, Carbon Dioxide Level 27, Calcium Level 8.8 CBC/BMP Laboratory Tests 03/23/17 05:57 Red Blood Count 2.77 L, Mean Corpuscular Volume 104.8 H, Mean Corpuscular Hemoglobin 36.4 H, Mean Corpuscular Hemoglobin Concent 34.7, Red Cell Distribution Width 14.2, Calcium Level 8.8 Microbiology Microbiology 03/18/17 Acid Fast Stain - Final, Resulted 03/18/17 Mycobacterial Culture, Resulted Pending 03/18/17 Fungal Smear - Final, Resulted 03/18/17 Fungal Culture, Resulted Pending 03/18/17 Gram Stain - Final, Complete 03/18/17 Anaerobic Culture - Final, Complete 03/18/17 Body Fluid Culture - Final, Complete ANNA PAZ DO March 23, 2017 23:02
--- NOTE | 2017-03-24 02:17 | IPN ---
DATE: 03/23/2017 SUBJECTIVE: The patient was seen and examined at the bedside. She was sitting in the bed. She reports mild shortness of breath, otherwise she denies any active complaints. Her renal function is stable. Her sodium is improved to 137 today. REVIEW OF SYSTEMS: The patient denies any fevers, chills, rigors, headaches, nausea, vomiting, chest pain. She does report shortness of breath. Rest of review of systems is negative. OBJECTIVE: VITAL SIGNS: Temperature is 98.3 degrees Fahrenheit, blood pressure is 124/69, pulse is 107, respiratory rate 17, saturating 91% on nasal cannula at 4 liters. INTAKE AND OUTPUT: Urine output is not recorded. Weight on the bed scale is 51.3 kg. PHYSICAL EXAMINATION: GENERAL: The patient is awake, alert, oriented times three, sitting in the bed in no apparent distress. HEAD/NECK: Extraocular muscles intact. Pupils equal, round, and reactive to light. Neck is supple. There is no jugular venous distention (JVD). CARDIOVASCULAR: S1, S2. Mild tachycardia. No murmur, rub, or gallop. RESPIRATORY: Mildly decreased breath sounds at the bases and mild respiratory rhonchi of the left base. ABDOMEN: Soft. Positive bowel sounds. Nontender. No ascites. No organomegaly. EXTREMITIES: No clubbing or cyanosis. Pulses are 2+. CENTRAL NERVOUS SYSTEM (RUG HOOKER): No focal neurological deficit. Power is 5/5 in all extremities. LABORATORY DATA: CBC showed a WBC of 9.8, hemoglobin 10.1, platelets are 398. BMP showed sodium 137, potassium 4.4, chloride 99, bicarbonate 27, BUN 20, creatinine 0.4, calcium 8.8. CURRENT MEDICATIONS: The patient's medications are all reviewed by me. The significant change in the medication includes I decreased the sodium tablet to 1 gram by mouth twice a day. ASSESSMENT: A 66-year-old female with small-cell lung cancer and hyponatremia caused by syndrome of inappropriate secretion of antidiuretic hormone (SIADH). PLAN: 1. Hyponatremia. The patient is responding well to salt tablets. She is on 2 grams twice a day. Sodium has improved to 137. I am going to decrease the salt tablet to 1 gram by mouth twice a day. Continue to monitor basic metabolic panel (BMP) for now. No need of diuretic or Samsca at this time. 2. Small-cell cancer of the lung. The patient and her family have decided not to get chemotherapy at this time. She is pending placement at a [facility] close to her home. 3. Anemia. Hemoglobin is 10.1, which is acceptable at this time. No need of blood transfusion at this time. 4. Hypertension. Blood pressure is acceptable at this time. Continue current dose of amlodipine 5 mg by mouth daily and Coreg 12.5 mg by mouth twice a day.
[2017-03-24] MEDS: ALPRAZolam 0.25 MG TAB PO PRN ×2 (03:29→18:58)
[2017-03-24] MEDS: IPRATROPIUM 0.5MG/ALBUTEROL 2.5MG INH SOL UD 3ML (DUONEB)(J7620) NEB SCH ×5 (03:56→20:00)
[2017-03-24] MEDS ORDERED: CALCIUM CARBONATE 500 MG CHEW U/D PO PRN (05:15)
[2017-03-24 06:00] VITALS: BP 122/52
[2017-03-24 06:13] LABS: ANION GAP 8 MEQ/L (8-16); BLOOD UREA NITROGEN 18 MG/DL (7-18); CALCIUM LEVEL 8.1 MG/DL (8.8-10.2); CARBON DIOXIDE LEVEL 28 MEQ/L (21-32); CHLORIDE LEVEL 99 MEQ/L (98-107); CREATININE FOR GFR 0.43 MG/DL (0.55-1.02); GLOMERULAR FILTRATION RATE > 60.0 (>45); GLUCOSE, FASTING 103 MG/DL (80-110); POTASSIUM SERUM 3.8 MEQ/L (3.5-5.1); SODIUM LEVEL 135 MEQ/L (136-145)
[2017-03-24] MEDS: MULTIVITAMINS/MINERALS THERAP 1 TAB PO SCH (09:49)
[2017-03-24] MEDS: POTASSIUM CHLORIDE 10 MEQ SR TABLET PO SCH (09:49)
[2017-03-24] MEDS: DOCUSATE SODIUM 100 MG CAP PO SCH ×2 (09:49→21:17)
[2017-03-24] MEDS: ASPIRIN 81 MG ENTERIC TAB PO SCH (09:50)
[2017-03-24] MEDS: BUDESONIDE EC 3 MG CAP (ENTOCORT EC) PO SCH (09:50)
[2017-03-24] MEDS: NICOTINE 7 MG/24 HR TRANSDERMAL TD SCH (09:50)
[2017-03-24] MEDS: SODIUM CHLORIDE 1 GM TAB PO SCH ×3 (09:50→21:04)
[2017-03-24] MEDS: VITAMIN D 1,000 INTERNATIONAL UNITS TABLET PO SCH (09:50)
[2017-03-24] MEDS: amLODIPine 5 MG TAB PO SCH (09:51)
[2017-03-24] MEDS: CARVedilol 12.5 MG TAB PO SCH ×2 (09:51→21:06)
[2017-03-24] MEDS: FOLIC ACID 1 MG TAB PO SCH (09:51)
[2017-03-24] MEDS: THIAMINE 100 MG TAB PO SCH (09:51)
[2017-03-24] MEDS: FAMOTIDINE 20 MG TAB PO SCH ×2 (09:51→21:04)
--- NOTE | 2017-03-24 10:13 | IPNPDOC ---
Subjective Date Seen The patient was seen on 03/24/17. Subjective Chief Complaint/HPI The patient is a 66-year-old female admitted with a reason for visit of Malignant Hyponatremia And Low Sodium. Events since last encounter pt seen and examined, was sitting in bed eating breakfast, no overnight events per nursing staff. Objective Physical Examination General Exam: Positive: Alert, Cooperative, No Acute Distress Eye Exam: Positive: Conjunctiva & lids normal, EOMI ENT Exam: Positive: Atraumatic, Mucous membr. moist/pink, Pharynx Normal Neck Exam: Positive: Supple Chest Exam: Positive: Diminished Heart Exam: Positive: Tachycardic, Regular Rhythm, Normal S1, Normal S2 Abdomen Exam: Positive: Normal bowel sounds, Soft, Other Extremity Exam: Positive: Normal pulses Skin Exam: Positive: Nl turgor and temperature Neuro Exam: Positive: Normal Speech, Cranial Nerves 3-12 NL Psych Exam: Positive: Oriented x 3 Assessment /Plan Problems (1) Pulmonary nodules/lesions, multiple Problem Text: * Patient had numerous pulm nodules on chest CT, some of which are spiculated with massive adenopathy * Status post bronchoscopy with ultrasound-guided biopsy on 03/14 * 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 * Also has a focal lesion on liver, hemangioma vs solid nodule * pt doesn't want to go to oncology * will be going to rehab/subacute * pt will not be able to go home because she will need more help at home * she has been requiring oxygen with activity up to 4L per nasal canula (2) Hyponatremia Status: Resolved Response to Treatment: Improving Problem Specific Plan: Consult Specialist Problem Text: * Secondary to SIADH * Nephrology following * Placed on a 1000ml fluid restriction * Given Samsca initially Also on sodium chloride tablets twice daily * Continue to monitor sodium levels, currently 135 (3) Small cell carcinoma Problem Text: * Brain MRI done on 03/18. Only one view of MRI was able to be obtained because patient could not lay flat and she is refusing bone scan today because she states that she cannot lay flat for it even though she had thoracentesis yesterday * Abd/pelvis CT revealed ill defined lesions in the liver, too small to characterized. Left lobe lesion could possibly be a hemangioma * pt wants to go to rehab doesn't want chemo and doesn't want to follow up with oncology * spoke with daughter she is aware of the plan (4) Pleural effusion Problem Text: * Had moderate left sided effusion seen on imaging * Had therapeutic thoracentesis on 03/18 where 840ml of fluid was removed * path was positive for large cell (5) CHF (congestive heart failure) Status: Chronic Problem Text: * Appears stable * Echo on 03/13 revealed grade 1 diastolic dysfunction, LVEF of 70%, small pericardial effusion, moderate elevation of pulmonary artery systolic pressure (6) Chronic respiratory failure with hypoxia Problem Text: * Requiring supplemental O2 * Has history of being on O2 at home, script provided for O2 concentrator * Has chronic SOB from COPD (7) Hypertension Status: Chronic Problem Text: * Blood pressure stable * Currently on Norvasc and Coreg (8) COPD (chronic obstructive pulmonary disease) Status: Chronic Problem Text: * Patient is on supplemental O2, titrate to 88-92% * Monitor respiratory status * DuoNeb breathing treatments as needed, continue Spiriva (9) Alcohol abuse Status: Chronic Problem Text: * Liver ultrasound on 03/13 revealed 2 cysts in the liver, 2 focal hyperechoic nodular areas which could represent hemangioma or solid nodules, no reported cirrhosis * Continue with thiamine, folic acid and multivitamins daily * Counseled on alcohol abuse. Encouraged cessation. (10) Irritable bowel syndrome Status: Chronic Problem Text: * Takes budesonide for chronic diarrhea (11) Cigarette smoker Problem Text: * Reports that she has smoked 2 packs a day for at least 50 years. * Continue with nicotine patch * Counseled on smoking cessation Plan/VTE VTE Prophylaxis Ordered?: Yes (teds and sequentials) VS, I&O, 24H, Fishbone Vital Signs/I&O Vital Signs Date Time Temp Pulse Resp B/P (MAP) Pulse Ox O2 Delivery O2 Flow Rate FiO2 03/24/17 09:51 113 122/52 03/24/17 06:00 97.9 18 95 Room Air 03/23/17 20:15 3.0 03/22/17 08:33 50 I&O- Last 24 Hours up to 6 AM 03/24/17 06:00 Intake Total 600 ml Output Total 0 ml Balance 600 ml Laboratory Data 24H LABS Laboratory Tests 2 03/24/17 05:40: Anion Gap 8, Glomerular Filtration Rate > 60.0, Blood Urea Nitrogen 18, Creatinine 0.43L, Sodium Level 135L, Potassium Level 3.8, Chloride Level 99, Carbon Dioxide Level 28, Calcium Level 8.1L CBC/BMP Laboratory Tests 03/24/17 05:40 Calcium Level 8.1 L Microbiology Microbiology 03/18/17 Acid Fast Stain - Final, Resulted 03/18/17 Mycobacterial Culture, Resulted Pending 03/18/17 Fungal Smear - Final, Resulted 03/18/17 Fungal Culture, Resulted Pending 03/18/17 Gram Stain - Final, Complete 03/18/17 Anaerobic Culture - Final, Complete 03/18/17 Body Fluid Culture - Final, Complete ANNA PAZ DO March 24, 2017 10:13
[2017-03-24] MEDS: TIOTROPIUM INHALER/CAPSULE (SPIRIVA) INH SCH (11:01)
--- NOTE | 2017-03-24 15:18 | IPN ---
DATE: 03/24/2017 SUBJECTIVE: Patient was seen and examined at the bedside today in the morning. She is hemodynamically stable. Sodium is down from 137-135. Patient reports that she was sitting in her bed yesterday and she slipped and fell down. She denies hitting her head or getting hurt. She had to be picked up by the nursing staff. She feels okay right now. She denies any complaints at this time. REVIEW OF SYSTEMS: Patient denies any fevers, chills, rigors, headache, nausea, vomiting, or chest pain. She does report shortness of breath. She is oxygen dependent. She denies any pain in abdomen, constipation, or diarrhea. OBJECTIVE: VITAL SIGNS: Temperature is 97.9 degrees Fahrenheit, blood pressure is 122/52, pulse is 96, respiratory rate 18, saturating 95% on room air. INTAKE/OUTPUT: Urine output is not recorded. Weight in the bed scale is 59.6 kg. PHYSICAL EXAMINATION: GENERAL: The patient is awake, alert, oriented times three, in mild respiratory distress sitting in the bed. HEAD/NECK: Extraocular muscles intact. Pupils equally round and reactive to light. Neck is supple. There is no jugular venous distention (JVD). CARDIOVASCULAR: S1, S2. Tachycardia. No murmur, rub, or gallop. RESPIRATORY: Decreased breath sounds at the bases and mild inspiratory rhonchi on the left base. ABDOMEN: Soft. Positive bowel sounds. Nontender. No ascites. No organomegaly. EXTREMITIES: No clubbing or cyanosis. Pulses are 2+. CENTRAL NERVOUS SYSTEM (MUCK HAULER): No focal neurological deficit. Power is 5/5 in all extremities. LABORATORY DATA: CBC showed a WBC of 9.8, hemoglobin was 10.1, this is from yesterday. This morning's basic metabolic panel (BMP) showed sodium 135, potassium 3.8, chloride 99, bicarbonate 28, BUN 18, creatinine 0.4, calcium 8.1. CURRENT MEDICATIONS: The patient's medications were all reviewed by me. I have changed patient's sodium chloride tablet to 1 gram by mouth three times a day. There is no other change in the medications today. ASSESSMENT: 66-year-old female with small-cell lung cancer and hyponatremia caused by syndrome of inappropriate secretion of antidiuretic hormone (SIADH). PLAN: 1. Hyponatremia. Patient's sodium fluctuates between 137-135. I had decreased the sodium chloride dose yesterday, so I am increasing the dose back again to 1 gram by mouth three times a day. Continue to monitor basic metabolic panel (BMP) for now. 2. Small-cell lung cancer. Patient and family have decided not to do chemotherapy. Patient is pending placement at a care home close to her home. 3. Hypertension. Blood pressure is acceptable at this time. Continue current dose of amlodipine 5 mg by mouth daily, carvedilol 12.5 mg by mouth twice a day. DISCHARGE PLANNING: It is okay to discharge the patient from a nephrology standpoint. She can continue the current dose of salt tablet and potassium chloride. Nephrology service will sign off at this moment. Please call nephrology service as needed for any help in the management of this patient.
[2017-03-24 21:00] VITALS: BP 112/62
[2017-03-24] MEDS: SIMVASTATIN 10 MG TAB PO SCH (21:04)
[2017-03-24 22:00] VITALS: BP 103/51
[2017-03-25] MEDS: ALPRAZolam 0.25 MG TAB PO PRN ×2 (01:12→06:19)
[2017-03-25] MEDS: IPRATROPIUM 0.5MG/ALBUTEROL 2.5MG INH SOL UD 3ML (DUONEB)(J7620) NEB SCH ×4 (03:38→11:12)
[2017-03-25 06:00] VITALS: BP 114/55
[2017-03-25 06:46] LABS: MEAN CORPUSCULAR HEMOGLOBIN 35.6 pg (27.0-33.0); MEAN CORPUSCULAR VOLUME 104.6 fl (80.0-96.0); RED CELL DISTRIBUTION WIDTH 14.4 % (11.5-14.5); WHITE BLOOD COUNT 6.7 K/mm3 (4.0-10.0)
[2017-03-25 07:00] LABS: ANION GAP 8 MEQ/L (8-16); BLOOD UREA NITROGEN 17 MG/DL (7-18); CALCIUM LEVEL 8.2 MG/DL (8.8-10.2); CARBON DIOXIDE LEVEL 28 MEQ/L (21-32); CHLORIDE LEVEL 98 MEQ/L (98-107); CREATININE FOR GFR 0.37 MG/DL (0.55-1.02); GLOMERULAR FILTRATION RATE > 60.0 (>45); GLUCOSE, FASTING 100 MG/DL (80-110); SODIUM LEVEL 134 MEQ/L (136-145)
[2017-03-25] MEDS: TIOTROPIUM INHALER/CAPSULE (SPIRIVA) INH SCH (07:23)
[2017-03-25] MEDS: MULTIVITAMINS/MINERALS THERAP 1 TAB PO SCH (09:00)
[2017-03-25] MEDS ORDERED: POTA10CA PO (09:31)
[2017-03-25] MEDS ORDERED: SODI1TA PO (09:31)
[2017-03-25] MEDS: DOCUSATE SODIUM 100 MG CAP PO SCH (09:46)
[2017-03-25] MEDS: SODIUM CHLORIDE 1 GM TAB PO SCH (09:46)
[2017-03-25] MEDS: ASPIRIN 81 MG ENTERIC TAB PO SCH (09:46)
[2017-03-25] MEDS: BUDESONIDE EC 3 MG CAP (ENTOCORT EC) PO SCH (09:46)
[2017-03-25] MEDS: VITAMIN D 1,000 INTERNATIONAL UNITS TABLET PO SCH (09:46)
[2017-03-25] MEDS: FAMOTIDINE 20 MG TAB PO SCH (09:47)
[2017-03-25] MEDS: FOLIC ACID 1 MG TAB PO SCH (09:47)
[2017-03-25 09:48] VITALS: BP 114/55
[2017-03-25] MEDS: THIAMINE 100 MG TAB PO SCH (09:48)
[2017-03-25] MEDS: amLODIPine 5 MG TAB PO SCH (09:48)
[2017-03-25] MEDS: POTASSIUM CHLORIDE 10 MEQ SR TABLET PO SCH (09:48)
[2017-03-25] MEDS: CARVedilol 12.5 MG TAB PO SCH (09:48)
[2017-03-25] MEDS: NICOTINE 7 MG/24 HR TRANSDERMAL TD SCH (09:49)
[2017-03-25] MEDS ORDERED: entocort (11:44)
[2017-03-25] MEDS ORDERED: IPRASOL4 NEB (11:44)
[2017-03-25] MEDS ORDERED: [UNRECOGNIZED DRUG - OTHER] (11:47)
[2017-03-25] MEDS ORDERED: ENTOCORT PO (11:47)
[2017-03-25] MEDS ORDERED: TYLE325C PO (11:48)
[2017-03-25] MEDS ORDERED: SODI1TAB6 PO (11:48)
[2017-03-25] MEDS ORDERED: XANA0.5T PO (11:51)
--- NOTE | 2017-03-26 07:39 | DSES ---
DATE OF ADMISSION: 03/12/2017 DATE OF DISCHARGE: 03/25/2017 REASON FOR ADMISSION: Transfer from [facility] due to low sodium. FINAL DIAGNOSES: 1. 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 2. 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 3. Hyponatremia. 4. Pleural effusion. 5. Congestive heart failure. 6. Chronic respiratory failure with hypoxia. 7. Hypertension. 8. Chronic obstructive pulmonary disease (COPD). 9. History of alcohol abuse. 10. Irritable bowel disease. 11. Cigarette smoking. HISTORY OF PRESENT ILLNESS: The patient is a 66-year-old female who presented to [facility], from [facility] due to hyponatremia. The patient was found to have a sodium as low as 107. The patient has history of COPD, significant for tobacco use one pack per day for the past 55 years, alcohol abuse, congestive heart failure. She was recently admitted to [facility] on 02/21, discharged on 02/22. She was treated with azithromycin and cefpodoxime for community-acquired pneumonia and urinary tract infection (UTI). The patient presented to the hospital again complaining of confusion and ataxia. She was noted to have sodium of 107, potassium 2.8, chloride 71, lactic acid 0.9. She was complaining of diarrhea and vomiting for three days. She was noted to have Clostridium (C.) difficile, was treated with Flagyl for one week and she was treated with Zosyn for pneumonia, after which vancomycin was added for persistent leukocytosis while the patient was on steroid. The patient was given 3% sodium on presentation with mild improvement. She says she might volume overloaded. She was given diuretics as well as seems Samsca 30 mg. Sodium went up to 124-147. The patient was continued on salt tablets. On 02/28 the patient had the initial rise from sodium 107 to 122 in less than 24 hours. She had acute rise of sodium 124 to 147 after 30 mg of Samsca was given on 03/07. She presented to [facility] after that. HOSPITAL COURSE: The patient was seen by Dr. Varma from neurology. On admission here the patient's sodium was 126. She was given one dose of sodium prior to transferring to here. Workup was pending for her sodium. The patient was also found to have pulmonary nodules on recent imaging. She was also found to have pleural effusion which was drained prior to doing more testing. Dr. Genao was also consulted for abnormal CT. She said the hilar adenopathy was concerning, as well as pulmonary nodules and bilateral pleural effusion. She recommended an ultrasound-guided needle aspiration of the lymphadenopathy. The patient underwent procedure on 03/14/2017. She underwent bronchoscopy with endotracheal ultrasound. Samples were sent for cytology and pathology. The patient has also a therapeutic thoracentesis on 03/18 where 840 mL of fluid were removed. Cytology, pathology came back positive. 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 Second biopsy was positive for large cell carcinoma. The patient at that time was offered therapy versus conservative measures, given the progression of her disease. Initially she agreed to comfort measures only ([employer]); then after speaking with her family, she wanted to discuss findings with oncology. Dr. Levy was then consulted on 03/15. 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 Traditionally this is treated with chemotherapy. However, that would only provide a modest extension to life expectancy. The patient initially was considering that as an option. However, upon further discussion with family including her daughter and her son, she decided she does not want to pursue chemotherapy and that she wants to be discharged home. However, that also became difficult since the patient had no support and her is unable to care for her home. She was not cleared by physical therapy (PT) to go home. However, they recommended, at subacute rehabilitation. The patient [place] 80 miles away from this facility. Patient and family services (PFS) was consulted and they found her a bed in [facility]. Once bed was obtained, the patient was agreeable to transfer. She was discharged to [facility] in [place]. DISCHARGE INSTRUCTIONS: Diet: Regular diet with salt tablets three times a day. Fluid restriction 1000 mL a day. Activities as tolerated. The patient is to followup with primary care provider in the area once she gets there. Discharge medications include: - amlodipine 5 mg daily - aspirin 81 mg daily - budesonide 9 mg in the morning - carvedilol 12.5 mg twice a day - Pepcid 20 mg twice a day - folic acid 1 mg daily - multivitamin one tablet daily - thiamine 100 mg daily - nicotine patch - potassium chloride 40 mEq by mouth daily - simvastatin 10 mg daily - Salt tablets 1 gram by mouth three times a day - tiotropium bromide inhaled daily - vitamin D 1000 units daily Discharge condition was stable. Patient's overall prognosis is guarded given the high level of metastasis. She likely has advanced cancer.
== END 2017-03-25 12:30 | DRG 824 ==
LOC: EDSTATUS 15:35 → M PCU 18:00 → M MS5PR 03-16 10:20
PROVIDERS: ADMIT Internal Medicine; ATTEND Internal Medicine
PROC: 07974ZX Drainage of Thorax Lymphatic, Percutaneous Endoscopic Approach, Diagnostic (ICD-10-PCS; principal; 2017-03-14 14:00)
PROC: 0W9B3ZX Drainage of Left Pleural Cavity, Percutaneous Approach, Diagnostic (ICD-10-PCS; 2017-03-18)
DX: C77.1 Secondary and unspecified malignant neoplasm of intrathoracic lymph nodes (principal); E22.2 Syndrome of inappropriate secretion of antidiuretic hormone; J96.11 Chronic respiratory failure with hypoxia; J90 Pleural effusion, not elsewhere classified; C78.7 Secondary malignant neoplasm of liver and intrahepatic bile duct; C34.90 Malignant neoplasm of unspecified part of unspecified bronchus or lung; I50.9 Heart failure, unspecified; F17.210 Nicotine dependence, cigarettes, uncomplicated; J44.9 Chronic obstructive pulmonary disease, unspecified; I11.0 Hypertensive heart disease with heart failure; K58.9 Irritable bowel syndrome, unspecified; F10.10 Alcohol abuse, uncomplicated; Z51.5 Encounter for palliative care; E83.51 Hypocalcemia; E87.6 Hypokalemia; Z79.899 Other long term (current) drug therapy; Z79.82 Long term (current) use of aspirin